=== PATIENT | female | born 1995 | race Caucasian/White ===

== ENCOUNTER 2023-07-28 12:02 | Outpatient (REF) | payer BC, SELFPAY ==
[2023-07-28 12:16] LABS: MANUAL DIFF FLAG NO
[2023-07-28 12:34] LABS: Basophils Percent Auto 0.6 % (0-2); Eosinophils Absolute Auto 0.2 X10*3/uL (0.0-0.4); Eosinophils Percent Auto 2.2 % (0-4); Hematocrit 40.2 % (37.0-47.0); Hemoglobin 13.7 g/dl (12.0-16.0); Imm Gran Abs Auto 0.02 X10*3/uL (0.00-0.03); Imm Gran Pct Auto 0.3 % (0.0-0.4); Lymphocytes Absolute Auto 2.7 X10*3/uL (1.2-4.9); Mean Corpuscular HGB Conc 34.1 g/dl (31.0-35.0); Mean Corpuscular Hemoglobin 31.8 pg (27.0-33.0); Mean Corpuscular Volume 93.3 fL (80.0-98.0); Mean Platelet Volume 10.4 fL (9.4-12.3); Monocytes Absolute Auto 0.5 X10*3/uL (0.1-1.2); Monocytes Percent Auto 7.3 % (2-11); Neutrophils Absolute Auto 3.7 x10*3/uL (2.0-8.3); Neutrophils Percent Auto 51.6 % (45-73); Platelet Count 334 X10*3/uL (160-400); Red Blood Count 4.31 X10*6/uL (4.20-5.50); Red Cell Distribution Width 12.2 % (11.0-16.0); White Blood Count 7.1 X10*3/uL (4.8-10.8)
[2023-07-28 13:12] LABS: Erythrocyte Sedimentation Rate 6 MM/HR (0-20)
[2023-07-28 13:44] LABS: Cholesterol 238 mg/dL (<200); HDL Cholesterol 37 mg/dL (>40); LDL Cholesterol Calculated 182 mg/dL (<100); Triglycerides 96 mg/dL (<150)
[2023-07-28 14:00] LABS: Ferritin 26 ng/mL (10-122)
== END 2023-07-28 12:03 | disposition home or self-care (01) ==
LOC: HO.LAB 12:02
PROVIDERS: PCP Internal Medicine Medical Oncology; Visit Provider Internal Medicine Medical Oncology
DX: D64.9 Anemia, unspecified (principal); E66.3 Overweight
CPT/HCPCS: 36415; 80061; 82728; 85025; 85652

== ENCOUNTER 2023-12-18 13:22 | Outpatient (AMB) | payer MEDICAID, SELFPAY ==
--- NOTE | 2023-12-18 13:24 | MHC.OFFVIS ---
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 but she switch primary care providers to Dr. Lorenzo and now she is coming here to initiate driver wheelchair care. She was on control since she was very young combination of the pills and Depo-Provera for 9 years. She has been having lots of health problems mainly to do with migraines with auras and trying figure out everything that was going on so she went off control to try and have her body get back to normal and she has been checking out with various doctors what is her planned strategy plan at this point she is trying to figure out all her triggers for her migraines with auras and she is taking magnesium every other day because every day was too much and she has a medication that she uses if she needs to with the migraines and she and her fiance are using condoms they have been together a long time and she did have a ones with him that she terminated because she was not good place when she was younger with mental health issues she is in better place now and they have had a conversation and there they do slip up and she gets they would continue the . They are planning to get in about a year. Right now her periods are heavy and very painful crampy this last 1 was about a week late was somewhat unusual and she did actually suspect she might of been but test with negative she does them lot. She can tell when she ovulates. She also has experienced a pressure and she points to her bladder area as being area and it is always in the morning she is lying in bed before she has gotten up. [facility] Family History (Updated 12/18/23 @ 13:42 by Chelsea Martinez) Paternal Grandfather Schizophrenia Mother Bipolar 1 disorder Female Reproductive History Menstrual Age of Menarche: 11 Duration of menses: 6-7 days Date of last menstrual period: 12/12/23 control method: none Total pregnancies: 1 Full term: 0 Premature: 0 Number of Living Children: 0 Ab induced: 1 Ab spontaneous: 0 Ectopics: 0 Multiple births: 0 Date of last pap smear: 02/07/23 History of abnormal pap smear: No History of STI: Yes (Chlamydia 2012) Physical Exam Vital Signs: Last Vital Signs BP 106/72 12/18/23 13:35 BMI result Body Mass Index 25.9 Const General: healthy appearing, comfortable, no acute distress, well developed and alert Nutritional Appearance: average body habitus Orientation/consciousness: patient oriented x3 Limitations: no limitations HEENT Head: Yes normocephalic Neck Neck: Yes normal visual inspection Chest Chest palpation & inspection: normal inspection of the chest Breast/axilla inspection: normal inspection of the breasts and normal inspection of the axillae Breast/axilla palpation: normal palpation of the breasts and normal palpation of the axillae Resp Effort & Inspection: normal respiratory effort GI Inspection: Yes normal to inspection, No Abdominal wall edema and No distended Palpation (GI): Soft to palpation and nontender Other: Normal external exam vagina pink and moist cervix nulliparous towards end of menses clear discharge with scant brown end of menses slightly friable with Pap uterus small midposition mobile nontender adnexa nontender nonenlarged good tone Kegel. General: Yes bladder normal to palpation External Female Exam: normal external appearance and normal appearance of the urethra Speculum Exam - Vagina: normal appearance of the vagina, normal palpation and normal vaginal discharge Speculum Exam - Cervix: normal appearance of the cervix, normal palpation and nontender Bimanual exam- vagina & uterus: normal bimanual exam, normal palpation, uterine size normal, bladder normal to palpation, consistency normal, normal palpation, uterine mobility normal, uterine shape normal, No Cervical tenderness present, non-tender and no cervical motion tenderness Bimanual Exam- Adnexa, other: normal adnexae, no masses, normal and No adnexal tenderness Neuro General: patient oriented x3 Assessment & Plan Assessment & Plan (1) Migraine: Code(s): G43.909 - Migraine, unspecified, not intractable, without status migrainosus (2) Well woman exam with routine gynecological exam: Code(s): Z01.419 - Encounter for gynecological examination (general) (routine) without abnormal findings Category: Medical (3) Cervical cancer screening: Code(s): Z12.4 - Encounter for screening for malignant neoplasm of cervix Category: Medical (4) control counseling: Code(s): Z30.09 - Encounter for other general counseling and advice on contraception Category: Medical Plan -----Discussed in this visit the following: healthy balanced diet, regular and consistent exercise, getting recommended health screens, doing the best she can for her particular health concerns, kegel exercises, pap smear screening and followup recommendations, mammography screening and SBE, normal changes in cycles in her life stage--- .-I reviewed with the patient, all of the currently common used methods of control that are available. We reviewed how they work in the body, how they are taken, common side effects, uncommon side effects, precautions, and contraindications. -Discussed also factors that influence their effectiveness and use, and womens satisfaction with the method. -Discussed how each are used, and drawbacks of each method as well. -Methods covered included: condoms, control pills, control patches, control rings, Depo-Provera, Nexplanon, Mirena and Kyleena IUDs, and ParaGard IUDs. All of the above methods were covered in great detail including their side effect profiles and common experiences that women have and ways to mitigate against the negative experiences including attention to diet and exercise patient's with bleeding challenges that may occur her and efforts to time the initiation of the method to this start of the menstrual period. ---I discussed with pt some of the optimal strategies for planning a , including achieving the best health she can before , including heathy balanced diet, exercise, wt loss to ideal BMI if appropriate, avoiding toxic substances and medications, not smoking, and taking a multivitamin w folic acid daily. Any specific health concerns should be managed before seeking/ putting oneself at risk of pregancy. In addition I reviewed normal cycles, fertility awareness and signs of ovulation, and timing to avoid, and achieve when she feel ready. I also discussed emotional and relationship and support readiness before embarking on . Also reviewed options for where to find team providers care for her during and and in the [facility] this would include [facility] and [address] [place] [address] in [place]. Orders: Orders Pap Smear Today Z01.419 - Encounter for gynecological examination (general) (routine) without abnormal findings CT NG by PCR Today Z01.419 - Encounter for gynecological examination (general) (routine) without abnormal findings Bacterial Vaginosis Panel Today Z01.419 - Encounter for gynecological examination (general) (routine) without abnormal findings Coding Level of Care Code New Pt Prev Care 18-39yr([id number] Diagnoses Migraine G43.909 Well woman exam with routine gynecological exam Z01.419 Cervical cancer screening Z12.4 control counseling Z30.09
[2023-12-18 13:35] VITALS: BP 106/72; BMI 25.9
== END 2023-12-18 15:52 | disposition home or self-care (01) ==
PROVIDERS: PCP Internal Medicine Medical Oncology; Visit Provider Advanced Practice Midwife
DX: G43.909 Migraine, unspecified, not intractable, without status migrainosus (principal); Z01.419 Encounter for gynecological examination (general) (routine) without abnormal findings; Z12.4 Encounter for screening for malignant neoplasm of cervix; Z30.09 Encounter for other general counseling and advice on contraception
CPT/HCPCS: 99385

== ENCOUNTER → 2023-12-18 13:22 | Outpatient (BNVA) | payer MEDICAID, SELFPAY | PROVIDERS: PCP Internal Medicine Medical Oncology; Visit Provider Advanced Practice Midwife | DX: Z01.419 Encounter for gynecological examination (general) (routine) without abnormal findings (principal); G43.109 Migraine with aura, not intractable, without status migrainosus | CPT/HCPCS: 99385 ==

== ENCOUNTER 2023-12-18 17:22 | Outpatient (REF) | payer MEDICAID, SELFPAY ==
[2023-12-19 03:23] LABS: CT PCR NOT DETECTED (Not Detect.); NG PCR NOT DETECTED (Not Detect.)
[2023-12-19 11:11] LABS: HPV 16,18/45 See PAP report
[2023-12-19 11:48] LABS: Bacterial Vaginosis PCR NEGATIVE (Negative); Candida Group PCR NOT DETECTED (Not Detect); Candida glab krusei PCR NOT DETECTED (Not Detect); Trichomonas vaginalis PCR NOT DETECTED (Not Detect)
== END 2023-12-18 17:23 | disposition home or self-care (01) ==
LOC: HO.LNP 17:22
PROVIDERS: Visit Provider Advanced Practice Midwife
DX: Z01.419 Encounter for gynecological examination (general) (routine) without abnormal findings (principal)
CPT/HCPCS: 0352U; 87491; 87591; 87624; 88175

== ENCOUNTER 2024-02-09 14:11 | Outpatient (REF) | payer MEDICAID, SELFPAY ==
[2024-02-09 14:29] LABS: MANUAL DIFF FLAG NO
[2024-02-09 14:35] LABS: Basophils Percent Auto 0.6 % (0-2); Eosinophils Absolute Auto 0.2 X10*3/uL (0.0-0.4); Eosinophils Percent Auto 2.6 % (0-4); Hemoglobin 13.8 g/dl (12.0-16.0); Imm Gran Abs Auto 0.02 X10*3/uL (0.00-0.03); Imm Gran Pct Auto 0.3 % (0.0-0.4); Lymphocytes Absolute Auto 2.5 X10*3/uL (1.2-4.9); Lymphocytes Percent Auto 36.9 % (20-40); Mean Corpuscular HGB Conc 33.7 g/dl (31.0-35.0); Mean Corpuscular Volume 95.1 fL (80.0-98.0); Mean Platelet Volume 10.7 fL (9.4-12.3); Monocytes Absolute Auto 0.4 X10*3/uL (0.1-1.2); Monocytes Percent Auto 5.4 % (2-11); Neutrophils Absolute Auto 3.7 x10*3/uL (2.0-8.3); Neutrophils Percent Auto 54.2 % (45-73); Platelet Count 284 X10*3/uL (160-400); Red Blood Count 4.31 X10*6/uL (4.20-5.50); White Blood Count 6.9 X10*3/uL (4.8-10.8)
== END 2024-02-09 14:12 | disposition home or self-care (01) ==
LOC: HO.LAB 14:11
PROVIDERS: PCP Internal Medicine Medical Oncology; Visit Provider Internal Medicine Medical Oncology
DX: I49.3 Ventricular premature depolarization (principal); G43.809 Other migraine, not intractable, without status migrainosus; J45.20 Mild intermittent asthma, uncomplicated; R42 Dizziness and giddiness
CPT/HCPCS: 36415; 85025

== ENCOUNTER 2024-12-17 09:19 | Outpatient (AMB) | payer OTHER, SELFPAY ==
--- OUTSIDE RECORDS SUMMARY | 2024-08-28 11:15 | XMS_ITS ---
Author Organization Trell Lorenzo III, MD Address [address] [place] [address] Care Team Providers Care Employee Health Nurse Name Role Phone Dr. Trell Lorenzo III Primary Care Provider [phone] Allergies Allergen (clinical drug ingredient) Drug/Non Drug Allergy documented on EMR Reaction Allergy Type Onset Date Status Adhesive Unknown Allergy Active REASON FOR VISIT Possible ringworm Medications Medication SIG (Take, Route, Frequency, Duration) Notes Start Date End Date Status Cetirizine HCl 10 MG TAKE 1 TABLET BY MO UT ONCE DAILY FOR ALLERGIES Oral Active Magnesium Oxide 250 MG 1 tablet as neede d Orally Once a day Active Propranolol HCl 10 MG TAKE 1 TABLET BY OUTH 3 TIMES DAILY NEEDED (PALPITATIONS). Oral Active Albuterol Sulfate HFA 108 (90 Base) MCG/ACT Inhalation Active OXcarbazepine 150 MG TAKE 1 TABLET BY MO UTH THREE TIMES A DAY Oral Active SUMAtriptan Active hydrOXYzine HCl 25 MG 1 tablet as needed Orally as needed for anxiety 11/06/2023 Active Social History Tobacco Use: Social History Observation Description Date Details (start date - stop date) Never Smoker NA - NA Sex Assigned At : Social History Observation Description Sex Assigned At Female Tobacco Use/Smoking Question Answer Notes Patient is a nonsmoker Problems Problem Type SNOMED Code ICD Code Onset Dates Problem Status W/U Status Risk Notes Problem [id number] Fungal dermatitis (B36.9) Active confirmed She will be treated with terbinafine for several weeks with a followup visit. Vital Signs Temperature 97.9 degrees Fahrenheit 08/29/19 25 Blood pressure systolic 122 mm Hg 08/29/19 25 Blood pressure diastolic 76 mm Hg 025 Heart Rate 71 /min 08/28/2024 Height 62 in 08/28/2024 Weight 144 lbs 08/28/2024 BMI 26.34 kg/m2 08/28/2024 Encounters Encounter Location Date Provider Diagnosis Trell Lorenzo III, MD [address] [place] [address] [place], [place] [address] 08/28/2024 Trell Lorenzo Fungal dermatitis B36.9 ; Tinnitus, bilateral H93.13 ; Mild intermittent asthma without complication J45.20 ; Vertigo R42 and Tension headache G44.209 Assessments Encounter Date Diagnosis (ICD Code) Assessment Notes Treatment Notes Treatment Clinical Notes 08/28/2024 Fungal dermatitis (ICD-10 - B36.9) She will be treated with terbinafine for several weeks with a followup visit. 08/28/2024 Tinnitus, bilateral (ICD-10 - H93.13) She has this episodically in neurology is aware.She has an appointment with ENT in September 2023 to address the issue of the previous myringotomies and her current tinnitus. Her hearing will be evaluated at that time. 08/28/2024 Mild intermittent asthma without complication (ICD-10 - J45.20) She has had episodes of asthma since childhood. I have refilled a prescription for an albuterol inhaler. She will come to the office if this becomes severe. 08/28/2024 Vertigo (ICD-10 - R42) She has an appointment with ENT in September 2023. The vertigo is not present now. 08/28/2024 Tension headache (ICD-10 - G44.209) She will continue on her use of acetaminophen and ibuprofen. Plan Of Treatment Medication Medication Name Sig Start Date Stop Date Notes Cetirizine HCl 10 MG TAKE 1 TABLET BY MO UTH ONCE DAILY FOR ALLERGIES Oral Magnesium Oxide 250 MG 1 tablet as neede d Orally Once a day Propranolol HCl 10 MG TAKE 1 TABLET BY M OUTH 3 TIMES DAILY NEEDED (PALPITATIONS). Oral Albuterol Sulfate HFA 108 (9 0 Base) MCG/ACT Inhalation OXcarbazepine 150 MG TAKE 1 TABLET BY MO UTH THREE TIMES A DAY Oral SUMAtriptan hydrOXYzine HCl 25 MG 1 tablet as needed Orally as needed for anxiety 11/06/2023 Next Appt Details Follow Up: 3 Weeks, Reason: Telehealth Provider Name:Trell Lorenzo , 04/14/2025 09:30:00 AM, [address] [facility] [address], [place], [address], Provider Name:Trell Lorenzo , 10/17/2025 09:30:00 AM, [address] [facility] [address], [place], [address], Progress Notes * Ericka WOLFE LDOB:1995 (28 yo F)Acc No.[id number]:08/28/2024 Patient: Ericka GUPTA Provider: Luís Lorenzo MD :1995 A ge:28 Y S ex:Female Date:08/28/2024 Address:[address] [place], [place] [id number] Subjective: * Chief Complaints: * P ossible ringworm * HPI: v : She is concerned about a rash he has developed. There are a few small red, punctate lesions on her forearms and abdomen and a round area in the range on the back of her right knee. In the area with typical continue. She has been given instructions on how to use terbinafine twice a day for several weeks with a followup visit. * ROS: G eneral/Constitutional: pain o nly normal aches and pains. C hills d enies.?Fatigue a dmits. F ever d enies. E NT: Decreased hearing d enies. R espiratory: Cough d enies. C ardiovascular: Chest pain with exertion d enies. D yspnea on exertion?denies. S hortness of breath d enies. G astrointestinal: Constipation d enies. D ecreased appetite d enies.?Diarrhea d enies. H eartburn d enies. N ausea d enies. R ectal bleeding?denies. V omiting d enies. H ematology: bruising d enies. p etechiae d enies. S wollen glands n one have been noted. G enitourinary: Frequent urination d enies. M usculoskeletal: Muscle aches d enies. P ainful joints d enies. S ciatica d enies. W eakness d enies. S kin: Itching d enies. R ria F ungal rash-appearing in several locations over the last few weeks. S kin lesion(s) d enies. N eurologic: Difficulty speaking d enies. D izziness d enies.?Headache d enies. L ow back pain d enies. P sychiatric: Depressed mood d enies. * Medical History: * Surgical History: B ilateral myringotomies Skin grafted eardrum age 14 [id number] Termination No history * Hospitalization/Major Diagno stic Procedure: N o history * Family History: F ather: alive 47 yrs, diagnosed with CVD, HTN. M other: 23 yrs, bipolar. S iblings: alive. 2 brother(s) , 2 sister(s) - healthy. . There is a history of Alzheimer's dementia in her grandparents. Her mother at the age of 23 in an automobile accident. She was an adopted. She is not aware of any family history of mental illness or addiction or substance use disorder. 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 She is engaged to be . She does not smoke cigarettes. She does not drink alcohol. She has no history of substance use disorder. She was born and raised in [place]. She has no islam objection to blood transfusion. * Medications: T akinghydrOXYzine HCl 25 MG Tablet 1 tablet as needed Orally as needed for anxiety SUMAtriptan Magnesium Oxide 250 MG Tablet 1 tablet as needed Orally Once a day Cetirizine HCl 10 MG Tablet TAKE 1 TABLET BY MOUTH ONCE DAILY FOR ALLERGIES Oral Albuterol Sulfate HFA 108 (90 Base) MCG/ACT Aerosol Solution Inhalation OXcarbazepine 150 MG Tablet TAKE 1 TABLET BY MOUTH THREE TIMES A DAY Oral Taking hydrOXYzine HCl 25 MG Tablet 1 tablet as needed Orally as needed for anxiety Taking SUMAtriptan Taking Magnesium Oxide 250 MG Tablet 1 tablet as needed Orally Once a day Taking Cetirizine HCl 10 MG Tablet TAKE 1 TABLET BY MOUTH ONCE DAILY FOR ALLERGIES Oral Taking Albuterol Sulfate HFA 108 (90 Base) MCG/ACT Aerosol Solution Inhalation Taking OXcarbazepine 150 MG Tablet TAKE 1 TABLET BY MOUTH THREE TIMES A DAY Oral DiscontinuedPropranolol HCl 10 MG Tablet TAKE 1 TABLET BY MOUTH 3 TIMES DAILY NEEDED (PALPITATIONS). Oral hydrOXYzine HCl 25 MG Tablet TAKE 1/2 TABLET BY MOUTH DAILY NEEDED FOR SLEEP OR ANXIETY. Oral Once a day Medication List reviewed and reconciled with the patientDiscontinued Propranolol HCl 10 MG Tablet TAKE 1 TABLET BY MOUTH 3 TIMES DAILY NEEDED (PALPITATIONS). Oral Discontinued hydrOXYzine HCl 25 MG Tablet TAKE 1/2 TABLET BY MOUTH DAILY NEEDED FOR SLEEP OR ANXIETY. Oral Once a day Medication List reviewed and reconciled with the patient * Allergies: A geronimovenliborio[Allergies Verified] Objective: * Vitals: H t: 62, Wt: 144, BMI:26.34, BP: 122/76, HR: 71, Temp: 97.9, Ht-cm: 157.48, Wt-k.32. * Examination: G eneral Examination: GENERAL APPEARANCE: p leasant, well nourished, well developed, in no acute distress, calm and relaxed: overweight: woman. HEAD: a traumatic, normocephalic. EYES: e matthew, perrla, anicteric, conjugate. EARS: n ormal. NOSE: s eptum intact. ORAL CAVITY: n ormal, unremarkable. NECK/THYROID: n o jugular venous distention, no carotid bruit, thyroid normal. LYMPH NODES: n o enlarged lymph nodes,spleen normal. SKIN: P rofound red area where the ring suspicious for tinea corporis back of knee. HEART: n o clicks, gallops, murmurs, or rubs, regular rhythm, S1, S2 normal, no s3, or vascular bruits. LUNGS: c lear to auscultation . BREASTS: N ot examined. ABDOMEN: b owel sounds normal, no ascites, no organomegaly, no mass: overweight. RECTAL EXAM: n ot examined. MUSCULOSKELETAL: e xtremities unremarkable, no clubbing, cyanosis or edema. PERIPHERAL PULSES: n ormal. NEUROLOGIC: a lert and oriented, cranial nerves 2-12 grossly intact, deep tendon reflexes 2+ symmetrical, motor strength normal upper and lower extremities, sensory exam intact. PSYCH: a lert, oriented. Assessment: * Assessment: 1. F ungal dermatitis - B36.9 (Primary) N otes :She will be treated with terbinafine for several weeks with a followup visit. 2 . T innitus, bilateral - H93.13 N otes :She has this episodically in neurology is aware.She has an appointment with ENT in September 2023 to address the issue of the previous myringotomies and her current tinnitus. Her hearing will be evaluated at that time. 3 . M ild intermittent asthma without complication - J45.20 N otes :She has had episodes of asthma since childhood. I have refilled a prescription for an albuterol inhaler. She will come to the office if this becomes severe. 4 . V ertigo - R42 N otes :She has an appointment with ENT in September 2023. The vertigo is not present now. 5 . T ension headache - G44.209 N otes :She will continue on her use of acetaminophen and ibuprofen. Plan: * Treatment: 2. O thers Continue hydrOXYzine HCl Tablet, 25 MG, 1 tablet as needed, Orally, as needed for anxiety; C ontinue SUMAtriptan; C ontinue Magnesium Oxide Tablet, 250 MG, 1 tablet as needed, Orally, Once a day; C ontinue Cetirizine HCl Tablet, 10 MG, TAKE 1 TABLET BY MOUTH ONCE DAILY FOR ALLERGIES, Oral; C ontinue Albuterol Sulfate HFA Aerosol Solution, 108 (90 Base) MCG/ACT, Inhalation; C ontinue Propranolol HCl Tablet, 10 MG, TAKE 1 TABLET BY MOUTH 3 TIMES DAILY NEEDED (PALPITATIONS)., Oral. * Procedure Codes: * Preventive Medicine: Counseling: C are goal follow-up plan: Counseling for abnormal BMI given Y es Above Normal BMI Follow-up D ietary management education, guidance, and counseling, Dietary needs education, Exercise promotion: strength training, Exercise promotion: stretching, Feeding regime, Giving encouragement to exercise, Lifestyle education regarding diet, Nutrition / feeding management, Nutrition therapy, Prescribed activity/exercise education, Prescribed diet education, Prescribed dietary intake, Special diet education, Weight monitoring , Intervention, Order not done: Medical or Other reason not done * Follow Up: 3 Weeks (Reason: Telehealth) * Images: * Sign off status: Completed true * Provider: Luís Lorenzo MD Date: 0 08/28/2024 Generated for Sharon wilkes/Ramakrishna/Alber on: 02/17/2024 10:09 AM EST History and Physical Notes * Examination Category Sub-Category Detail Notes General Examination GENERAL APPEARANCE: pleasant , well nourished, well developed, in no acute distress, calm and relaxed: overweight: woman HEAD: atraumatic, normocep halic EYES: eomi, perrla, anicte gautam, conjugate EARS: normal NOSE: septum intact NECK/THYROID: no jugular venous di stention, no carotid bruit, thyroid normal HEART: no clicks, gallops, murmurs, or rubs, regular rhythm, S1, S2 normal, no s3, or vascular bruits LUNGS: clear to auscultatio n ABDOMEN: bowel sounds normal, no ascites, no organomegaly, no mass: overweight NEUROLOGIC: alert and oriented, cranial nerves 2-12 grossly intact, deep tendon reflexes 2+ symmetrical, motor strength normal upper and lower extremities, sensory exam intact SKIN: Profound red area wh ere the ring suspicious for tinea corporis back of knee PERIPHERAL PULSES: normal BREASTS: Not examined MUSCULOSKELETAL: extremities unremark able, no clubbing, cyanosis or edema LYMPH NODES: no enlarged lymph no german,spleen normal RECTAL EXAM: not examined PSYCH: alert, oriented ORAL CAVITY: normal, unremarkable
--- OUTSIDE RECORDS SUMMARY | 2024-09-10 04:13 | XMS_ITS ---
Author Organization Trell Lorenzo III, MD Address [address] [place] [address] [place] [address] Care Team Providers Care Fluid Pump Operator Name Role Phone Dr. Trell Lorenzo III Primary Care Provider REASON FOR VISIT update on her rash getting worse Social History Sex Assigned At : Social History Observation Description Sex Assigned At Female Encounters Encounter Location Date Provider Diagnosis Trell Lorenzo III, MD [address] [place] [address] [place] [address] 09/10/2024 Trell Lorenzo Plan Of Treatment Next Appt Details Provider Name:Trell Lorenzo , 04/14/2025 09:30:00 AM, [address] [place] [address] [place], [address], Provider Name:Trell Lorenzo , 10/17/2025 09:30:00 AM, [address] [place] [address] [place], [address], Progress Notes * Ericka WOLFE LDOB:1995 (28 yo F)Acc No.[id number]:09/10/2024 Patient: Bob MEDINABARI Ericka Méndez :1995 A ge:28 Y S ex:Female Address:[address], [address], [place], [address] * true * Date: Generated for Printi ng/Faxing/eTransmitting on: 02/17/2024 10:08 AM EST
--- OUTSIDE RECORDS SUMMARY | 2024-09-10 06:20 | XMS_ITS ---
Author Organization Trell Lorenzo III, MD Address [address] [place] [address] [place] [address] Care Team Providers Care Pulp Grinder Name Role Phone Dr. Trell Lorenzo III Primary Care Provider [phone] Medications Medication SIG (Take, Route, Fr equency, Duration) Notes Start Date End Date Status Ketoconazole 2 % 1 application Green Belt ally twice a day for 14 days 09/10/2024 11/05/2024 Active Social History Sex Assigned At : Social History Observation Description Sex Assigned At Female Encounters Encounter Location Date Provider Diagnosis Trell Lorenzo III, MD [address] [place] [address] [place] [address] 09/10/2024 Trell Lorenzo Plan Of Treatment Medication Medication Name Sig Start Date Stop Date Notes Ketoconazole 2 % 1 application Green Belt ally twice a day for 14 days 09/10/2024 11/05/2024 Next Appt Details Provider Name:Trell Lorenzo , 04/14/2025 09:30:00 AM, [address] [place] [address] [place], [address], Provider Name:Trell Lorenzo , 10/17/2025 09:30:00 AM, [address] [place] [address] [place], [address], Progress Notes * Ericka WOLFE LDOB:1995 (28 yo F)Acc No.[id number]:09/10/2024 Patient: Bob Ericka SIN :1995 A ge:28 Y S ex:Female Address:[address] [place] [address], [place] [address] * Refills Start Ketoconazole Cream, 2 %, Externally, 60 Gram, 1 application, twice a day, 14 days, Refills=3 * true * Date: Generated for Sharon wilkes/Ramakrishna/Mooseitting on: 02/17/2024 10:09 AM EST
--- OUTSIDE RECORDS SUMMARY | 2024-09-13 04:00 | XMS_ITS ---
Author Organization Trell Lorenzo III, MD Address [address] [address] Care Team Providers Care Water Team Leader Name Role Phone Dr. Trell Lorenzo III Primary Care Provider [phone] Allergies Allergen (clinical drug ingredient) Drug/Non Drug Allergy documented on EMR Reaction Allergy Type Onset Date Status Adhesive Unknown Allergy Active REASON FOR VISIT Rash, Asthma, Migraines Medications Medication SIG (Take, Route, Frequency, Duration) Notes Start Date End Date Status OXcarbazepine 150 MG TAKE 1 TABLET BY MO UTH THREE TIMES A DAY Oral Active Propranolol HCl 10 MG TAKE 1 TABLET BY M OUTH 3 TIMES DAILY NEEDED (PALPITATIONS). Oral Active Ketoconazole 2 % 1 application Auto Service Representative ally twice a day 09/10/2024 Active Ketoconazole 2 % 1 application Auto Service Representative ally twice a day for 14 days 09/13/2024 12/06/2024 Active Albuterol Sulfate HFA 108 (90 Base) MCG/ACT Inhalation Active Magnesium Oxide 250 MG 1 tablet as neede d Orally Once a day Active SUMAtriptan Active Cetirizine HCl 10 MG TAKE 1 TABLET BY MO UTH ONCE DAILY FOR ALLERGIES Oral Active hydrOXYzine HCl 25 MG 1 tablet [...] Problem Status W/U Status Risk Notes Problem [id number] Pityriasis versicolor (B36.0) Active confirmed The rash has resolved Vital Signs Temperature 98.2 degrees Fahrenheit 09/14/19 25 Blood pressure systolic 130 mm Hg 09/14/19 25 Blood pressure diastolic 73 mm Hg 025 Heart Rate 64 /min 09/13/2024 Height 62 in 09/13/2024 Weight 142 lbs 09/13/2024 BMI 25.97 kg/m2 09/13/2024 Encounters Encounter Location Date Provider Diagnosis Trell Lorenzo III, MD [address] [place] [address] [place] [address] 09/13/2024 Trell Lorenzo Pityriasis versicolo r B36.0 ; Tinnitus, bilateral H93.13 ; Mild intermittent asthma without complication J45.20 ; Tension headache G44.209 and Vertigo R42 Assessments Encounter Date Diagnosis (ICD Code) Assessment Notes Treatment Notes Treatment Clinical Notes 09/13/2024 Pityriasis versicolor (ICD-10 - B36.0) She is going to try triamcinolone. A follow-up visit was arranged. She was referred to dermatology.She has tried and failed to respond to terbinafine and ketoconazole. 09/13/2024 Tinnitus, bilateral (ICD-10 - H93.13) She has this episodically in neurology is aware.She has an appointment with ENT in September 2023 to address the issue of the previous myringotomies and her current tinnitus. Her hearing will be evaluated at that time. 09/13/2024 Mild intermittent asthma without complication (ICD-10 - J45.20) She has had episodes of asthma since childhood. I have refilled a prescription for an albuterol inhaler. She will come to the office if this becomes severe. 09/13/2024 Tension headache (ICD-10 - G44.209) She will continue on her use of acetaminophen and ibuprofen. 09/13/2024 Vertigo (ICD-10 - R42) She has an appointment with ENT in September 2023. The vertigo is not present now. Plan Of Treatment Medication Medication Name Sig Start Date Stop Date Notes OXcarbazepine 150 MG TAKE 1 TABLET BY MO UTH THREE TIMES A DAY Oral Propranolol HCl 10 MG TAKE 1 TABLET BY M OUTH 3 TIMES DAILY NEEDED (PALPITATIONS). Oral Ketoconazole 2 % 1 application Auto Service Representative ally twice a day 09/10/2024 Ketoconazole 2 % 1 application Auto Service Representative ally twice a day for 14 days 09/13/2024 12/06/2024 Albuterol Sulfate HFA 108 (9 0 Base) MCG/ACT Inhalation Magnesium Oxide 250 MG 1 tablet as neede d Orally Once a day SUMAtriptan Cetirizine HCl 10 MG TAKE 1 TABLET BY [facility] ONCE DAILY FOR ALLERGIES Oral hydrOXYzine HCl 25 MG 1 tablet as needed Orally as needed for anxiety 11/06/2023 Next Appt Details Follow Up: Next Monday Mo rning, Reason: OV no tests recheck rash Provider Name:Trell Lorenzo , 04/14/2025 09:30:00 AM, [address] [place] [address] [address], [place], [address], Provider Name:Trell Lorenzo , 10/17/2025 09:30:00 AM, [address] [place] [address] [address] [place], [place], [address], Progress Notes * Ericka WOLFE LDOB:1995 (28 yo F)Acc No.[id number]:09/13/2024 Progress Notes Patient: Ericka GUPTA Provider: Luís Lorenzo MD :1995 A ge:28 Y S ex:Female Date:09/13/2024 Address:[address] [place], [place] [id number] Subjective: * Chief Complaints: * R ashAsthmaMigraines * HPI: C OVID-19 Screening: She returns for follow-up of a rash first noted on her last vissit. She has been using ketoconazole as it appeared to be fungal. It has spread more to her torso. To date appears to be consistent with pityriasis. I have given her some triamcinolone in a follow-up visit. We have referred her to dermatology as well. She seems medically stable today. The pruritus is mild and intermittent. Questions H ave you had any new onset fever, chills, cough, congestion, sore throat, shortness of breath, muscle aches? N o * ROS: G eneral/Constitutional: pain o nly [...] S kin: Itching d enies. R ria H as become more extensive, mild intermittent pruritus. S kin lesion(s) d enies. N eurologic: Difficulty speaking d enies. D izziness d enies.?Headache d enies. L ow back pain d enies. P sychiatric: Depressed mood d enies. 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 She is engaged to be . She does not smoke cigarettes. She does not drink alcohol. She has no history of substance use disorder. She was born and raised in [place]. She has no mu-ism objection to blood transfusion. * Medications: T akinghydrOXYzine HCl 25 MG Tablet 1 tablet as needed Orally as needed for anxiety SUMAtriptan Magnesium Oxide 250 MG Tablet 1 tablet as needed Orally Once a day Cetirizine HCl 10 MG Tablet TAKE 1 TABLET BY MOUTH ONCE DAILY FOR ALLERGIES Oral Albuterol Sulfate HFA 108 (90 Base) MCG/ACT Aerosol Solution Inhalation Propranolol HCl 10 MG Tablet TAKE 1 TABLET BY MOUTH 3 TIMES DAILY NEEDED (PALPITATIONS). Oral OXcarbazepine 150 MG Tablet TAKE 1 TABLET BY MOUTH THREE TIMES A DAY Oral Ketoconazole 2 % Cream 1 application Externally twice a day , stop date 11/05/2024Medication List reviewed and reconciled with the patientTaking hydrOXYzine HCl 25 MG Tablet 1 tablet as needed Orally as needed for anxiety Taking SUMAtriptan Taking Magnesium Oxide 250 MG Tablet 1 tablet as needed Orally Once a day Taking Cetirizine HCl 10 MG Tablet TAKE 1 TABLET BY MOUTH ONCE DAILY FOR ALLERGIES Oral Taking Albuterol Sulfate HFA 108 (90 Base) MCG/ACT Aerosol Solution Inhalation Taking Propranolol HCl 10 MG Tablet TAKE 1 TABLET BY MOUTH 3 TIMES DAILY NEEDED (PALPITATIONS). Oral Taking OXcarbazepine 150 MG Tablet TAKE 1 TABLET BY MOUTH THREE TIMES A DAY Oral Taking Ketoconazole 2 % Cream 1 application Externally twice a day , stop date 11/05/2024Medication List reviewed and reconciled with the patient * Allergies: A dhesiveno[Allergies Verified] Objective: * Vitals: H t: 62, Wt: 142, BMI:25.97, BP: 130/73, HR: 64, Temp: 98.2, Ht-cm: 157.48, Wt-k.41. * Examination: G eneral Examination: GENERAL APPEARANCE: [...] n o enlarged lymph nodes,spleen normal. SKIN: N umerous round red areas over her arms and torso with mild scaling. HEART: n o clicks, gallops, murmurs, or [...] a lert, oriented. Assessment: * Assessment: 1. P ityriasis versicolor - B36.0 (Primary) N otes :She is going to try triamcinolone. A follow-up visit was arranged. She was referred to dermatology.She has tried and failed to respond to terbinafine and ketoconazole. 2 . T innitus, bilateral - H93.13 [...] office if this becomes severe. 4 . T ension headache - G44.209 N otes :She will continue on her use of acetaminophen and ibuprofen. 5 . V ertigo - R42 N otes :She has an appointment with ENT in September 2023. The vertigo is not present now. Plan: * Treatment: 2. O thers Continue [...] BY MOUTH 3 TIMES DAILY NEEDED (PALPITATIONS)., Oral; C ontinue OXcarbazepine Tablet, 150 MG, TAKE 1 TABLET BY MOUTH THREE TIMES A DAY, Oral; Start Ketoconazole Cream, 2 %, 1 application, Externally, twice a day, 14 days, 120 Gram, Refills 5. * Procedure Codes: * Preventive Medicine: Counseling: C are goal follow-up plan: Counseling for abnormal BMI given Y es Above Normal BMI Follow-up D ietary management education, guidance, and counseling * Follow Up: N ext Monday (Reason: OV no tests recheck rash) * Images: * Sign off status: Completed true * Provider: Luís Lorenzo MD Date: 0 09/13/2024 Generated for Sharon wilkes/Ramakrishna/Jamilaransmitting on: 1 02/17/2024 10:09 AM EST History and Physical Notes * HPI (History of Present Illness) Category Sub-Category Detail Notes COVID-19 Screening Questions Have you had any new onset fever, chills, cough, congestion, sore throat, shortness of breath, muscle aches?: No Examination Category Sub-Category Detail Notes General Examination [...] and lower extremities, sensory exam intact SKIN: Numerous round red a reas over her arms and torso with mild scaling PERIPHERAL PULSES: normal BREASTS: Not examined MUSCULOSKELETAL: extremities unremark able, no clubbing, cyanosis or edema LYMPH NODES: no enlarged lymph no german,spleen normal RECTAL EXAM: not examined PSYCH: alert, oriented ORAL CAVITY: normal, unremarkable
--- OUTSIDE RECORDS SUMMARY | 2024-09-18 04:30 | XMS_ITS ---
Author Organization Trell Lorenzo III, MD Address [address] [place] [address] Care Team Providers Care Bioinformatics Computer Scientist Name Role Phone Dr. Trell Lorenzo III Primary Care Provider Allergies Allergen (clinical drug ingredient) Drug/Non Drug Allergy documented on EMR Reaction Allergy Type Onset Date Status Adhesive Unknown Allergy Active REASON FOR VISIT Migraines, Rash Medications Medication SIG (Take, Route, Frequency, Duration) Notes Start Date End Date Status Cetirizine HCl 10 MG TAKE 1 TABLET BY MO [facility] ONCE DAILY FOR ALLERGIES Oral Active Magnesium Oxide 250 MG 1 tablet as neede d Orally Once a day Active Propranolol HCl 10 MG TAKE 1 TABLET BY [facility] 3 TIMES DAILY NEEDED (PALPITATIONS). Oral Active Albuterol Sulfate HFA 108 (90 Base) MCG/ACT Inhalation Active SUMAtriptan Active hydrOXYzine HCl 25 MG 1 tablet as needed Orally as needed for anxiety 11/06/2023 Active OXcarbazepine 150 MG TAKE 1 TABLET BY [facility] THREE TIMES A DAY Oral Active Ketoconazole 2 % 1 application Public Health Dietitian ally twice a day 09/13/2024 Active Ketoconazole 2 % 1 application Public Health Dietitian ally twice a day 09/10/2024 Active Social History Tobacco Use: Social History Observation Description Date Details (start date - stop date) Never Smoker NA - NA Sex Assigned At : Social History Observation Description Sex Assigned At Female Tobacco Use/Smoking Question Answer Notes Patient is a nonsmoker Vital Signs Blood pressure systolic 132 mm Hg 09/19/19 25 Blood pressure diastolic 70 mm Hg 025 Heart Rate 70 /min 09/18/2024 Height 62 in 09/18/2024 Weight 141 lbs 09/18/2024 BMI 25.79 kg/m2 09/18/2024 Encounters Encounter Location Date Provider Diagnosis Trell Lorenzo III, MD [address] [place] [address] [address] [place], [place] [address] 09/18/2024 Trell Lorenzo Pityriasis versicolo r B36.0 ; Mild intermittent asthma without complication J45.20 ; Vertigo R42 ; Overweight E66.3 and Vestibular migraine G43.809 Assessments Encounter Date Diagnosis (ICD Code) Assessment Notes Treatment Notes Treatment Clinical Notes 09/18/2024 Pityriasis versicolor (ICD-10 - B36.0) She is going to try triamcinolone. A follow-up visit was arranged. She was referred to dermatology.She has tried and failed to respond to terbinafine and ketoconazole. 09/18/2024 Mild intermittent asthma without complication (ICD-10 - J45.20) She has had episodes of asthma since childhood. I have refilled a prescription for an albuterol inhaler. She will come to the office if this becomes severe. 09/18/2024 Vertigo (ICD-10 - R42) She has an appointment with ENT in September 2023. The vertigo is not present now. 09/18/2024 Overweight (ICD-10 - E66.3) She is slightly overweight with a body mass index of 26. We discussed her diet and nutrition. We made a plan to lose weight at a rate of one half of a pound per week until the body mass index is in the normal range. 09/18/2024 Vestibular migraine (ICD-10 - G43.809) Dr. Doss has given her sumatriptan. Plan Of Treatment Medication Medication Name Sig Start Date Stop Date Notes Cetirizine HCl 10 MG TAKE 1 TABLET BY [facility] ONCE DAILY FOR ALLERGIES Oral Magnesium Oxide 250 MG 1 tablet as neede d Orally Once a day Propranolol HCl 10 MG TAKE [address] TABLET [address] [facility] 3 TIMES DAILY NEEDED (PALPITATIONS). Oral Albuterol Sulfate HFA 108 (9 0 Base) MCG/ACT Inhalation SUMAtriptan hydrOXYzine HCl 25 MG 1 tablet as needed Orally as needed for anxiety 11/06/2023 OXcarbazepine 150 MG TAKE 1 TABLET BY [facility] THREE TIMES A DAY Oral Ketoconazole 2 % 1 application Public Health Dietitian ally twice a day 09/13/2024 Ketoconazole 2 % 1 application Public Health Dietitian ally twice a day 09/10/2024 Next Appt Details Follow Up: 1 Week, Reason: O V Provider Name:Trell Lorenzo , 04/14/2025 09:30:00 AM, [address] [place] [address] [address], [place], [address], Provider Name:Trell Lorenzo , 10/17/2025 09:30:00 AM, [address] [place] [address] [address], [place], [address], Progress Notes * Ericka WOLFE LDOB:1995 (28 yo F)Acc No.[id number]:09/18/2024 Progress Notes Patient: Ericka GUPTA Provider: Luís Lorenzo MD :1995 A ge:28 Y S ex:Female Date:09/18/2024 Address:[address] [place], [place] [id number] Subjective: * Chief Complaints: * M igrainesRash * HPI: C OVID-19 Screening: Her migraines are slightly better. She is using Tylenol alone. The rash is unchanged or slightly worse. It is present over her arms and chest. It does not involve her lower extremities or back. It consists of flat red areas of skin without scaling or pruritus. It is likely pityriasis. She is asymptomatic. She will continue the ketoconazole for another week. If that is ineffective will use triamcinolone.? We are waiting for her dermatology appointment. Questions H ave you had any new [...] S kin: Itching d enies. R ria U nchanged. S kin lesion(s) d enies. N eurologic: Difficulty speaking d enies. D izziness d enies.?Headache S lightly better. L ow back pain d enies. P sychiatric: Depressed mood d enies. 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 She is engaged to be . She does not smoke cigarettes. She does not drink alcohol. She has no history of substance use disorder. She was born and raised in [place]. She has no episcopalian objection to blood transfusion. * Medications: T [...] Externally twice a day , stop date 12/06/2024Ketoconazole 2 % Cream 1 application Externally twice a day Medication List reviewed and reconciled with the patientTaking [...] Externally twice a day , stop date 12/06/2024Taking Ketoconazole 2 % Cream 1 application Externally twice a day Medication List reviewed and reconciled with the patient * Allergies: A dhesiveno[Allergies Verified] Objective: * Vitals: H t: 62, Wt: 141, BMI:25.79, BP: 132/70, HR: 70, Ht-cm: 157.48, Wt-k.96. * Examination: G eneral Examination: GENERAL APPEARANCE: [...] n o enlarged lymph nodes,spleen normal. SKIN: n o suspicious lesions, anicteric, Flat red Macular rash unchanged. HEART: n o clicks, gallops, murmurs, or [...] respond to terbinafine and ketoconazole. 2 . M ild intermittent asthma without complication - J45.20 N otes :She has had episodes of asthma since childhood. I have refilled a prescription for an albuterol inhaler. She will come to the office if this becomes severe. 3 . V ertigo - R42 N otes :She has an appointment with ENT in September 2023. The vertigo is not present now. 4 . O verweight - E66.3 N otes :She is slightly overweight with a body mass index of 26. We discussed her diet and nutrition. We made a plan to lose weight at a rate of one half of a pound per week until the body mass index is in the normal range. 5 . V estibular migraine - G43.809 N otes :Dr. Doss has given her sumatriptan. Plan: * Treatment: 2. O thers Continue [...] BY MOUTH THREE TIMES A DAY, Oral; Continue Ketoconazole Cream, 2 %, 1 application, Externally, twice a day. * Procedure Codes: * Preventive Medicine: Counseling: C are goal follow-up plan: Counseling for abnormal BMI given Y es Above Normal BMI Follow-up D ietary management education, guidance, and counseling * Follow Up: 1 Week (Reason: OV) * Images: * Sign off status: Completed true * Provider: Luís Lorenzo MD Date: 0 09/18/2024 Generated for Sharon wilkes/Ramakrishna/Alber on: 02/17/2024 10:09 [...] and lower extremities, sensory exam intact SKIN: no suspicious lesion s, anicteric, Flat red Macular rash unchanged PERIPHERAL PULSES: normal BREASTS: Not examined MUSCULOSKELETAL: extremities unremark able, no clubbing, cyanosis or edema LYMPH NODES: no enlarged lymph no german,spleen normal RECTAL EXAM: not examined PSYCH: alert, oriented ORAL CAVITY: normal, unremarkable
--- OUTSIDE RECORDS SUMMARY | 2024-09-18 12:30 | XMS_ITS ---
Author Organization Trell Lorenzo III, MD Address [address] [place] [address] [place] [address] Care Team Providers Care Pattern Developer Name Role Phone Dr. Trell Lorenzo III Primary Care Provider [phone] REASON FOR VISIT Telehealth Medications Medication SIG (Take, Route, Frequency, Duration) Notes Start Date End Date Status Propranolol HCl 10 MG TAKE [address] [facility] 3 TIMES DAILY NEEDED (PALPITATIONS). Oral Active Ketoconazole 2 % 1 application Care Specialist ally twice a day 09/13/2024 Active Ketoconazole 2 % 1 application Care Specialist ally twice a day 09/10/2024 Active OXcarbazepine 150 MG TAKE 1 TABLET BY [facility] THREE TIMES A DAY Oral Active Magnesium Oxide 250 MG 1 tablet as neede d Orally Once a day Active SUMAtriptan Active Albuterol Sulfate HFA 108 (90 Base) MCG/ACT Inhalation Active Cetirizine HCl 10 MG TAKE 1 TABLET BY [facility] ONCE DAILY FOR ALLERGIES Oral Active hydrOXYzine HCl 25 MG 1 tablet as needed Orally as needed for anxiety 11/06/2023 Active Social History Sex Assigned At : Social History Observation Description Sex Assigned At Female Encounters Encounter Location Date Provider Diagnosis Trell Lorenzo III, MD [address] [place] [address] [place] [address] 09/18/2024 Trell Lorenzo Pityriasis versicolo r B36.0 [...] HCl 10 MG TAKE [address] [facility] 3 TIMES DAILY NEEDED (PALPITATIONS). Oral Ketoconazole 2 % 1 application Care Specialist ally twice a day 09/13/2024 Ketoconazole 2 % 1 application Care Specialist ally twice a day 09/10/2024 OXcarbazepine 150 MG TAKE 1 TABLET BY [facility] THREE TIMES A DAY Oral Magnesium Oxide 250 MG 1 tablet as neede d Orally Once a day SUMAtriptan Albuterol Sulfate HFA 108 (9 0 Base) MCG/ACT Inhalation Cetirizine HCl 10 MG TAKE 1 TABLET BY [facility] ONCE DAILY FOR ALLERGIES Oral hydrOXYzine HCl 25 MG 1 tablet as needed Orally as needed for anxiety 11/06/2023 Next Appt Details Provider Name:Trell Lorenzo , 04/14/2025 09:30:00 AM, [address] [place] [address] [address], [place], [address], Provider Name:Trell Lorenzo , 10/17/2025 09:30:00 AM, [address] [place] [address] [address], [place], [address], Progress Notes * Ericka WOLFE LDOB:1995 (29 yo F)Acc No.[id number]:09/18/2024 Patient: Bob KATHIAJEFFREYBARI Ericka L Provider: Luís Lorenzo MD :1995 A ge:28 Y S ex:Female Date:09/18/2024 Address:[address] [place], [place] [id number] Subjective: * Chief Complaints: * 1 . Telehealth. * HPI: * : Telehealth L ocation of provider rendering services: { ...} [address] [place] [address] [address] [facility] [address] L ocation of patient: a ddress listed [...] 0 09/18/2024 Generated for Sharon wilkes/Ramakrishna/Mooseitting on: 02/17/2024 10:08 AM EST History and Physical Notes * HPI (History of Present Illness) Category Sub-Category Detail Notes Telehealth Location of [facility] rendering services:: {...} [address] [place] [address] Location of patient:: address listed in demographics [...]
--- OUTSIDE RECORDS SUMMARY | 2024-09-27 10:45 | XMS_ITS ---
Author Organization Trell Lorenzo III, MD Address [address] [place] [address] Care Team Providers Care Software Engineering Specialist Name Role Phone Dr. Trell Lorenzo III Primary Care Provider Allergies Allergen (clinical drug ingredient) Drug/Non Drug Allergy documented on EMR Reaction Allergy Type Onset Date Status Adhesive Unknown Allergy Active REASON FOR VISIT follow up Medications Medication SIG (Take, Route, Frequency, Duration) Notes Start Date End Date Status Cetirizine HCl 10 MG TAKE 1 TABLET BY MO UT ONCE DAILY FOR ALLERGIES Oral Active SUMAtriptan Active Magnesium Oxide 250 MG 1 tablet as neede d Orally Once a day Active hydrOXYzine HCl 25 MG 1 tablet as needed Orally as needed for anxiety 11/06/2023 Active Ketoconazole 2 % 1 application Loader Operator ally twice a day 09/13/2024 Active OXcarbazepine 150 MG TAKE 1 TABLET BY MO UT THREE TIMES A DAY Oral Active Albuterol Sulfate HFA 108 (90 Base) MCG/ACT Inhalation Active Propranolol HCl 10 MG TAKE 1 TABLET BY M OUT 3 TIMES DAILY NEEDED (PALPITATIONS). Oral Active Social History Tobacco Use: Social History Observation Description Date Details (start date - stop date) Never Smoker NA - NA Sex Assigned At : Social History Observation Description Sex Assigned At Female Tobacco Use/Smoking Question Answer Notes Patient is a nonsmoker Encounters Encounter Location Date Provider Diagnosis Trell Lorenzo III, MD [address] [place] [address] [place] [address] 09/27/2024 Trell Lorenzo Pityriasis versicolo r B36.0 Assessments Encounter Date Diagnosis (ICD Code) Assessment Notes Treatment Notes Treatment Clinical Notes 09/27/2024 Pityriasis versicolor (ICD-10 - B36.0) She is going to try triamcinolone. A follow-up visit was arranged. She was referred to dermatology.She has tried and failed to respond to terbinafine and ketoconazole. Plan Of Treatment Medication Medication Name Sig Start Date Stop Date Notes Cetirizine HCl 10 MG TAKE 1 TABLET BY MO UT ONCE DAILY FOR ALLERGIES Oral SUMAtriptan Magnesium Oxide 250 MG 1 tablet as neede d Orally Once a day hydrOXYzine HCl 25 MG 1 tablet as needed Orally as needed for anxiety 11/06/2023 Ketoconazole 2 % 1 application Loader Operator ally twice a day 09/13/2024 OXcarbazepine 150 MG TAKE 1 TABLET BY MO UT THREE TIMES A DAY Oral Albuterol Sulfate HFA 108 (9 0 Base) MCG/ACT Inhalation Propranolol HCl 10 MG TAKE 1 TABLET BY M OUT 3 TIMES DAILY NEEDED (PALPITATIONS). Oral Next Appt Details Provider Name:Trell Lorenzo , 04/14/2025 09:30:00 AM, [address] [place] [address] [address], [place], [address], Provider Name:Trell Lorenzo , 10/17/2025 09:30:00 AM, [address] [place] [address] [address], [place], [address], Progress Notes * Ericka WOLFE LDOB:1995 (29 yo F)Acc No.[id number]:09/27/2024 Progress Notes Patient: Ericka GUPTA Provider: Luís Lorenzo MD :1995 A ge:28 Y S ex:Female Date:09/27/2024 Address:[address] [place], [place] [id number] Subjective: * Chief Complaints: * 1 . Follow up. * HPI: C OVID-19 Screening: Questions H ave you had any new [...] Depressed mood d enies. * Medical History: T innitus of both ears, Anxiety, Asthma, Vertigo, Tension headaches, Complex migraines, Childhood otitis requiring myringotomies, [id number], Asthma, Overweight. * Surgical History: B ilateral myringotomies , Skin grafted eardrum age 14 , [id number] Termination , No history . * Hospitalization/Major Diagno stic Procedure: N o history . 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 She is engaged to be . She does not smoke cigarettes. She does not drink alcohol. She has no history of substance use disorder. She was born and raised in [place]. She has no denominational objection to blood transfusion. * Medications: T aking hydrOXYzine HCl 25 MG Tablet 1 tablet [...] reconciled with the patient * Allergies: A dhesive. Objective: * Vitals: * Examination: G eneral Examination: GENERAL APPEARANCE: p leasant, well nourished, well developed, in no acute distress, calm and relaxed. HEAD: a traumatic, normocephalic. EYES: e matthew, perrla, anicteric, conjugate. EARS: n ormal. NOSE: s eptum intact. ORAL CAVITY: n ormal, unremarkable. NECK/THYROID: n o jugular venous distention, no carotid bruit, thyroid normal. LYMPH NODES: n o enlarged lymph nodes,spleen normal. SKIN: n o suspicious lesions, anicteric. HEART: n o clicks, gallops, murmurs, or rubs, regular rhythm, S1, S2 normal, no s3, or vascular bruits. LUNGS: c lear to auscultation . BREASTS: no masses palpable bilaterally. ABDOMEN: b owel sounds normal, no ascites, no organomegaly, no mass. RECTAL EXAM: n ot examined. MUSCULOSKELETAL: e [...] to terbinafine and ketoconazole. Plan: * Treatment: * Images: * The named appointment provid er may or may not be the originator of this progress note, and it is not deemed complete until electronically signed by the appointment provider. Sign off status: Pending * Provider: Luís Lorenzo MD Date: 0 09/27/2024 Generated for Sharon wilkes/Ramakrishna/Mooseitting on: 02/17/2024 10:09 AM EST History and Physical Notes * HPI (History of Present Illness) Category Sub-Category Detail Notes COVID-19 Screening Questions Have you had any new onset fever, chills, cough, congestion, sore throat, shortness of breath, muscle aches?: No Examination Category Sub-Category Detail Notes General Examination GENERAL APPEARANCE: pleasant , well nourished, well developed, in no acute distress, calm and relaxed HEAD: atraumatic, normocep halic EYES: eomi, perrla, anicte gautam, conjugate EARS: normal NOSE: septum intact NECK/THYROID: no jugular venous di stention, no carotid bruit, thyroid normal HEART: no clicks, gallops, murmurs, or rubs, regular rhythm, S1, S2 normal, no s3, or vascular bruits LUNGS: clear to auscultatio n ABDOMEN: bowel sounds normal, no ascites, no organomegaly, no mass NEUROLOGIC: alert and oriented, cranial nerves 2-12 grossly intact, deep tendon reflexes 2+ symmetrical, motor strength normal upper and lower extremities, sensory exam intact SKIN: no suspicious lesion s, anicteric PERIPHERAL PULSES: normal BREASTS: no masses palpable b ilaterally MUSCULOSKELETAL: extremities unremark able, no clubbing, cyanosis or edema LYMPH NODES: no enlarged lymph no german,spleen normal RECTAL EXAM: not examined PSYCH: alert, oriented ORAL CAVITY: normal, unremarkable
--- OUTSIDE RECORDS SUMMARY | 2024-10-11 12:00 | XMS_ITS ---
Author Organization Trell Lorenzo III, MD Address [address] [place] [address] Care Team Providers Care Toll Bridge Operator Name Role Phone Dr. Trell Lorenzo III Primary Care Provider Allergies Allergen (clinical drug ingredient) Drug/Non Drug Allergy documented on EMR Reaction Allergy Type Onset Date Status Adhesive Unknown Allergy Active REASON FOR VISIT follow up Medications Medication SIG (Take, Route, Frequency, Duration) Notes Start Date End Date Status hydrOXYzine HCl 25 MG 1 tablet as needed Orally as needed for anxiety 11/06/2023 Active SUMAtriptan Active Magnesium Oxide 250 MG 1 tablet as neede d Orally Once a day Active Cetirizine HCl 10 MG TAKE 1 TABLET BY MO [facility] ONCE DAILY FOR ALLERGIES Oral Active Albuterol Sulfate HFA 108 (90 Base) MCG/ACT Inhalation Active Propranolol HCl 10 MG TAKE 1 TABLET BY OUT 3 TIMES DAILY NEEDED (PALPITATIONS). Oral Active OXcarbazepine 150 MG TAKE 1 TABLET BY MO UT THREE TIMES A DAY Oral Active Ketoconazole 2 % 1 application Solid Waste Division Supervisor ally twice a day 09/13/2024 Active Social History Tobacco Use: Social History Observation Description Date Details (start date - stop date) Never Smoker NA - NA Sex Assigned At : Social History Observation Description Sex Assigned At Female Tobacco Use/Smoking Question Answer Notes Patient is a nonsmoker Encounters Encounter Location Date Provider Diagnosis Trell Lorenzo III, MD [address] [place] [address] [place] [address] 10/11/2024 Trell Lorenzo Plan Of Treatment Medication Medication Name Sig Start Date Stop Date Notes hydrOXYzine HCl 25 MG 1 tablet as needed Orally as needed for anxiety 11/06/2023 SUMAtriptan Magnesium Oxide 250 MG 1 tablet as neede d Orally Once a day Cetirizine HCl 10 MG TAKE 1 TABLET BY MO [facility] ONCE DAILY FOR ALLERGIES Oral Albuterol Sulfate HFA 108 (9 0 Base) MCG/ACT Inhalation Propranolol HCl 10 MG TAKE 1 TABLET BY M OUTH 3 TIMES DAILY NEEDED (PALPITATIONS). Oral OXcarbazepine 150 MG TAKE 1 TABLET BY MO [facility] THREE TIMES A DAY Oral Ketoconazole 2 % 1 application Solid Waste Division Supervisor ally twice a day 09/13/2024 Next Appt Details Provider Name:Trell Luis M Maura , 04/14/2025 09:30:00 AM, [address] [place] [address] [address], [place], [address], Provider Name:Trell Asencio Maura , 10/17/2025 09:30:00 AM, [address] [place] [address] [address], [place], [address], Progress Notes * Ericka WOLFE LDOB:1995 (29 yo F)Acc No.[id number]:10/11/2024 Progress Notes Patient: Bob MEDINABARIEricka Provider: Luís Lorenzo MD :1995 A ge:28 Y S ex:Female Date:10/11/2024 Address:[address] [place], [place] [id number] Subjective: * Chief Complaints: * 1 . [...] headaches, Complex migraines, Childhood otitis requiring myringotomies, [id number], Asthma, Overweight. * Surgical History: B ilateral myringotomies , Skin grafted eardrum age 14 , [id number] Termination , No history . 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 She is engaged to be . She does not smoke cigarettes. She does not drink alcohol. She has no history of substance use disorder. She was born and raised in [place]. She has no advent objection to blood transfusion. * Medications: T [...] exam intact. PSYCH: a lert, oriented. Assessment: Plan: * Treatment: * Images: * The named appointment provid er may or may not be the originator of this progress note, and it is not deemed complete until electronically signed by the appointment provider. Sign off status: Pending * Provider: Luís Lorenzo MD Date: 0 10/11/2024 Generated for Sharon wilkes/Faxing/eTransmitting on: 1 02/17/2024 10:10 AM EST History and Physical Notes * [...]
--- OUTSIDE RECORDS SUMMARY | 2024-10-15 10:00 | XMS_ITS ---
Author Organization Trell Lorenzo III, MD Address [address] [address] Care Team Providers Care Human Resources Services Specialist Name Role Phone Dr. Trell Lorenzo III Primary Care Provider [phone] Allergies Allergen (clinical drug ingredient) Drug/Non Drug [...] Speciality Internal M edicine Referred Provider Neurology [facility] Referred Provider Specialty Neurology General Notes Mone Fuller 10/21/2024 11:06:42 AM > Referral faxed with progress note, Mone Fuller 10/23/2024 03:17:26 PM > Referral has been received but patient is not scheduled at this time Referral Priority Routine REASON FOR VISIT Annual Exam Medications Medication SIG (Take, Route, Frequency, Duration) Notes Start Date End Date Status Ketoconazole 2 % 1 application Well Reactivator Operator ally twice a day 09/13/2024 Active Cetirizine HCl 10 MG TAKE 1 TABLET BY [facility] ONCE DAILY FOR ALLERGIES Oral PRN Active [...] Date Provider Diagnosis Trell Lorenzo III, MD [address] [place] [address] [address] [place], [place] [address] 10/15/2024 Trell Lorenzo Vestibular migraine G43.809 ; [...] Date Notes Ketoconazole 2 % 1 application Well Reactivator Operator ally twice a day 09/13/2024 Cetirizine HCl 10 MG TAKE 1 TABLET BY [facility] ONCE DAILY FOR ALLERGIES Oral PRN Albuterol [...] Evaluate and Treat Recurrent headaches Recurrent Migraines, [facility] Next Appt Details Follow Up: 6 Months, Reason: OV Provider Name:Trell Lorenzo , 04/14/2025 09:30:00 AM, [address] [place] [address] [address], [place], [address], Provider Name:Trell Lorenzo , 10/17/2025 09:30:00 AM, [address] [place] [address] [address], [place], [address], Progress Notes * Ericka WOLFE LDOB:1995 (28 yo F)Acc No.[id number]:10/15/2024 Progress Notes Patient: Ericka GUPTA Provider: Luís Lorenzo MD :1995 A ge:28 Y S ex:Female Date:10/15/2024 Address:[address] [place], [place] [id number] Subjective: * Chief Complaints: * A nnual [...] ilateral myringotomies Skin grafted eardrum age 14 [id number] Termination No history * Hospitalization/Major Diagno stic [...] N egative 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 She is engaged to be . She does not smoke cigarettes. She does not drink alcohol. She has no history of substance use disorder. She was born and raised in [place]. She has no scientologist objection to blood transfusion. * Medications: T [...] N ot examined, This is done by SULFIDE HEAD OPERATOR. ABDOMEN: b owel sounds normal, no ascites, no organomegaly, no mass: overweight. RECTAL EXAM: n ot examined, This is done by SULFIDE HEAD OPERATOR. MUSCULOSKELETAL: e xtremities unremarkable, no clubbing, cyanosis [...] * Treatment: 2. T ension headache Referral To:[facility] Neurology Reason:Evaluate and Treat Recurrent [...] 1 application, Externally, twice a day. Referral To:[facility] Neurology Reason:Evaluate and Treat Recurrent [...] 10/15/2024 Generated for Angelinai katrin/Ramakrishna/eTransmitting on: 1 02/17/2024 10:09 AM EST History [...] Not examined, This i s done by SULFIDE HEAD OPERATOR MUSCULOSKELETAL: extremities unremark able, no clubbing, cyanosis or edema LYMPH NODES: no enlarged lymph no german,spleen normal RECTAL EXAM: not examined, This i s done by SULFIDE HEAD OPERATOR PSYCH: alert, oriented: cog nitive function intact: cooperative with exam: good eye contact: judgement and insight good: mood/affect full range: speech clear: thought process logical, goal directed ORAL CAVITY: normal, unremarkable Consultation Request Notes Referral Date Referring Provider Referred Provider Not anuja 10/15/2024 Trell Lorenzo Neurology [facility] Evaluate and Treat Recurrent headaches Recurrent Migraines
--- OUTSIDE RECORDS SUMMARY | 2024-11-12 12:00 | XMS_ITS ---
Author Organization Trell Lorenzo III, MD Address [address] [place] [address] Care Team Providers Care Tax Form Preparer Name Role Phone Dr. Trell Lorenzo III Primary Care Provider Allergies Allergen (clinical drug ingredient) Drug/Non Drug Allergy documented on EMR Reaction Allergy Type Onset Date Status Adhesive Unknown Allergy Active REASON FOR VISIT New Concern Medications Medication SIG (Take, Route, Frequency, Duration) Notes Start Date End Date Status SUMAtriptan PRN Active Ketoconazole 2 % 1 application Credit Authorizer ally twice a day 09/13/2024 Active Magnesium Oxide 250 MG 1 tablet as neede d Orally Once a day Active Albuterol Sulfate HFA 108 (90 Base) MCG/ACT Inhalation Active Cetirizine HCl 10 MG TAKE 1 TABLET BY [facility] ONCE DAILY FOR ALLERGIES Oral PRN [...] Date Provider Diagnosis Trell Lorenzo III, MD [address] [place] [address] [place] [address] 11/12/2024 Trell Lorenzo Plan Of Treatment Medication Medication Name Sig Start Date Stop Date Notes SUMAtriptan PRN Ketoconazole 2 % 1 application Credit Authorizer ally twice a day 09/13/2024 Magnesium Oxide 250 MG 1 tablet as neede d Orally Once a day Albuterol Sulfate HFA 108 (9 0 Base) MCG/ACT Inhalation Cetirizine HCl 10 MG TAKE 1 TABLET BY [facility] ONCE DAILY FOR ALLERGIES Oral PRN Ritalin 10 MG [address] omach Orally Twice a day hydrOXYzine HCl 25 MG 1 tablet as needed Orally as needed for anxiety 11/06/2023 Next Appt Details Provider Name:Trell Asencio Maura , 04/14/2025 09:30:00 AM, [address] [place] [address] [address], [place], [address], Provider Name:Trell Asencio Maura , 10/17/2025 09:30:00 AM, [address] [place] [address] [address], [place], [address], Progress Notes * Ericka WOLFE LDOB:1995 (29 yo F)Acc No.[id number]:11/12/2024 Progress Notes Patient: Ericka GUPTA Provider: Luís Lorenzo MD :1995 A ge:28 Y S ex:Female Date:11/12/2024 Address:[address] [place], [place] [id number] Subjective: * Chief Complaints: * 1 . [...] headaches, Complex migraines, Childhood otitis requiring myringotomies, [id number], Asthma, Overweight. * Surgical History: B ilateral myringotomies , Skin grafted eardrum age 14 , [id number] Termination , No history . 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 She is engaged to be . She does not smoke cigarettes. She does not drink alcohol. She has no history of substance use disorder. She was born and raised in [place]. She has no mosque objection to blood transfusion. * Medications: T [...] MD Date: Generated for Sharon wilkes/Ramakrishna/eTransmitting on: 02/17/2024 10:08 AM EST History and [...]
--- NOTE | 2024-12-17 09:21 | MHC.OFFVIS ---
Vital Signs 12/17/24 09:51 Height 5 ft 2 in Weight 140 lb BMI 25.6 BP 114/78 Blood Pressure Location Rt brachial Position Sitting Respiration 17 Pulse 71 Pulse Source Pulse Oximeter Pulse Oximetry (%) 98 Oxygen Delivery Method Room Air Intake Visit Reasons: recurrent headaches Allergies cat dander (cats) Allergy (Unknown, Verified 12/17/24 09:21) Unknown HPI Comments Details: Ericka is a 29-year-old female patient with a past medical history of tinnitus, anxiety, asthma, vertigo, here today for a headache evaluation. She was referred by primary care who notes a history of vestibular migraine and tension-type headaches. The patient tells me today that she has been experiencing headaches before the age of 10. She experiences headaches currently at a rate of 4-5 times per week and each headache can last up to couple of days or just a few hours within a day. Headaches can be moderate to severe in intensity and described as a throbbing, pulsing, pressure-like, or stabbing pain and in general can be variable. Headaches are predominantly left-sided but at times can be both. Her pain is often to the retro-orbital, temporal, and frontal areas and can radiate to the back of the head and neck. Her headaches are accompanied by nausea, smell sensitivity, dizziness, light sensitivity, sensitivity to touch, difficulty with concentration, fatigue, and feeling congested. She has no positional component to her headaches. She was getting very bad vestibular symptoms with her headaches but more recently has had less vestibular symptoms. She did see some improvement in her headaches after coming off of oral ocp. She also notes some aura symptoms including blurry vision, swirling lights, stars, and halos around lights in her vision. Sometimes she notices these before her headaches but can start says up to an hour before her headaches. She has had an episode of bilateral weakness and paresthesias and difficulty with word finding that was related to a migraine episodes. She was seen in the ER after this event and had a normal MRI during the workup. She has seen neurology in the past. She had been seen in the past by [facility] neurology and had been recommended magnesium supplementation. She has not seen significant improvement with that. She has been followed by ENT for several ear surgeries and has been told by them that her symptoms likely repeasent vestibular migraine. Headache characteristics: Time of onset: Before age 10 Location: Retro-orbital, temporal, and frontal Radiation: Behind head and neck Positional component: No Character: Throbbing, pulsating, pressure-like, and stabbing Severity: Moderate to severe Duration: Hours up to a couple of days-variable Frequency: 4-5 days per week Acute aggravating factors: Exercise, alcohol, sleep deprivation, skipping meals, air travel, dehydration, menstruation, altitude change, weather changes, stress, strong scents, high-pitched noises, lightening Acute relieving factors: Rest in dark room Associated symptoms: Nausea, light and sound sensitivity, dizziness, allodynia, difficulty concentrating, sensitivity to sound, fatigue, feeling of congestion Aura: Swirls in vision Headache triggers: Exercise, alcohol, sleep deprivation, skipping meals, air travel, dehydration, menstruation, altitude change, weather changes, stress, strong scents, high-pitched noises, lightening Relation to menses: Will regularly get worsening migraines with her menses Other related background information: Sleep: Sleep has improved since taking hydroxyzine. Stressors: Travel for work Hydration: Reports that she drinks 4-5 16oz water bottles throughout the day and more in the evening Caffeine intake: Very rare - causes jitteriness and anxiety Alcohol intake: Socially- and rarely Substance use:None Tobacco use:None Last eye exam: Within the past year Last dental visit: About 3 months ago. Denies clenching or grinding History of head injury:None Family planning considerations: No plans to become but no means of protection at this time Past medication trials: Tylenol-No benefit Ibuprofen- Helps at 800mg dose Excedrin- Helps but can cause jitteriness Sumatriptan- No significant benefit Magnesium 500mg- No significant improvement and some GI side-effects (avoid beta blockers d/t history of asthma) (in a trial period with psychiatry for moods) Prior workup: MRI completed at [facility] Medical History (Updated 12/17/24 @ 10:37 by Kylah Mahoney CNP) Headache Asthma Vertigo Asthma Anxiety Tinnitus of both ears Recurrent headache Family History (Updated 12/18/23 @ 13:42 by Chelsea Martinez) Paternal Grandfather Schizophrenia Mother Bipolar 1 disorder Female Reproductive History Menstrual Age of Menarche: 11 Number of Living Children: 0 Review of Systems Const All systems reviewed & are unremarkable except as noted in HPI and below Physical Exam Vital Signs: Last Vital Signs Pulse 71 12/17/24 09:51 Resp 17 12/17/24 09:51 BP 114/78 12/17/24 09:51 Pulse Ox 98 12/17/24 09:51 Oxygen Delivery Method Room Air 12/17/24 09:51 BMI result Body Mass Index 25.6 Const General: cooperative, healthy appearing, comfortable and no acute distress Nutritional Appearance: well nourished Orientation/consciousness: patient oriented x3 Limitations: no limitations HEENT Head: Yes normal to inspection and Yes normocephalic Eyes General: appearance normal, both eyes and all related structures Visual Ann: normal visual ann by confrontation Alignment and Position: alignment normal Periorbital: periorbital findings normal Eyelids: Yes eyelids normal Conjunctivae: conjunctivae normal Sclerae: sclerae normal Direct Ophthalmoscopy: normal light reflex, no papilledema and fundi normal bilaterally Neck Neck: Yes normal visual inspection and Yes full ROM General: Yes no CVA tenderness Back/Spine/Pelvis Back: no CVA tenderness Cervical Spine: normal cervical lordosis Thoracic/Lumbar Spine: thoracic and lumbar spine normal to inspection Neuro General: patient oriented x3 and deep tendon reflexes 2+ bilaterally Cranial nerves: Yes CN's II-XII intact bilaterally and Yes Facial sensation intact/muscles of mastication intact Cognition (Neuro): normal cognition Gait exam (Neuro): Normal gait present Motor exam (neuro): 5/5 motor strength present throughout and no tremor noted Sensory Exam: double simultaneous stimulation for sensation normal Romberg Test: Negative Pupils: Normal pupillary reactivity/response: bilateral Psych Appearance: grossly normal Mental Status: mental status grossly normal Speech and movement: Normal speech and movement present and Clear speech present Affect: normal affect Attitude: cooperative Thought process: Normal thought process present Thought content: Normal thought content present Insight: Good insight present (Psych) Judgement: Good judgement present (Psych) Assessment & Plan Assessment & Plan (1) Chronic migraine without aura without status migrainosus, not intractable: Code(s): G43.709 - Chronic migraine without aura, not intractable, without status migrainosus Category: Medical Plan Ericka is a 29-year-old female patient with a past medical history of tinnitus, anxiety, asthma, vertigo, here today for a headache evaluation. Headache patterns at this time are consistent with a diagnosis of chronic migraine. Historically she has had what is described as some visual auras, vestibular symptoms, and other complicated features including speech changes and sensations of weakness and paresthesias to her bilateral upper extremities. She does report having an MRI at [facility] which I will obtain an have scanned into the chart. She reports it being normal. Her exam today was also normal. She is not currently on any preventatives. She does note however that she would like to become in the next few years and she is not currently trying actively to become though is not currently using any protection. We did discuss that most preventive migraine medications are not recommended during . She would like to try an anti CGRP option especially given that we should avoid beta-blockers due to her history of asthma, tricyclics due to her concurrent use of hydroxyzine, and topiramate as she has been working with Psychiatry for medications that are for her moods. I am recommending a GEPANT opposed to a mAb because of the shorter half-life option should she become . We discussed a trial of Nurtec or Qulipta. She favors the Qulipta because of the daily dosing as she does feel that she may be more likely to forget the Nurtec if she is not taking it daily. - Trial of Qulipta 60 mg daily -Continue magnesium supplementation -For now, we will make no changes to her acute therapy but re-evaluate this at future visits once migraines are better controlled. In the interim, she was encouraged to limit the use of ibuprofen which she can use sparingly for acute migraine attacks Coding Level of Care Code New Pt Level 4 (96635) Diagnoses Chronic migraine without aura without status migrainosus, not intractable G43.709
[2024-12-17 09:51] VITALS: BP 114/78; PULSE 71; RESP 17; O2SAT 98; BMI 25.6
--- OUTSIDE RECORDS SUMMARY | 2024-12-17 10:10 | XMS_ITS | Patient Health Record ---
Author Organization Trell Lorenzo III, MD Address [address] [place] [address] Care Team Providers Care Implementation Specialist Payroll Name Role Phone Dr. Trell Lorenzo III Primary Care Provider Allergies Allergen (clinical drug ingredient) Drug/Non Drug Allergy documented on EMR Reaction Allergy Type Onset Date Status Adhesive Unknown Allergy Active Results Component Value Reference Range Notes Complete Blood Count Auto Di ff Reviewed date:02/10/2024 05:23:34 PM Interpretation: Performing Lab:[facility], [address] [place] [id number] Notes/Report: White Blood Count 6.9 4.8-10.8 X10*3/uL Red Blood Count 4.31 4.20-5.50 X10*6/uL Hemoglobin 13.8 12.0-16.0 g/dl Hematocrit 41.0 37.0-47.0 % Mean Corpuscular Volume 95.1 80.0-98.0 fL Mean Corpuscular Hemoglobin 32.0 27.0-33.0 pg Mean Corpuscular HGB Conc 33.7 31.0-35.0 g/dl Red Cell Distribution Width 12.0 11.0-16.0 % Platelet Count 284 160-400 X10*3/uL Mean Platelet Volume 10.7 9.4-12.3 fL Neutrophils Percent Auto 54.2 45-73 % Imm Gran Pct Auto 0.3 0.0-0.4 % Lymphocytes Percent Auto 36.9 20-40 % Monocytes Percent Auto 5.4 2-11 % Eosinophils Percent Auto 2.6 0-4 % Basophils Percent Auto 0.6 0-2 % NRBC Pct Auto 0.0 0.0-0.2 /100WBC Neutrophils Absolute Auto 3.7 2.0-8.3 x10*3/u L Imm Gran Abs Auto 0.02 0.00-0.03 X10*3/uL Lymphocytes Absolute Auto 2.5 1.2-4.9 X10*3/u L Monocytes Absolute Auto 0.4 0.1-1.2 X10*3/uL Eosinophils Absolute Auto 0.2 0.0-0.4 X10*3/u L Basophils Absolute Auto 0.0 0.0-0.2 X10*3/uL NRBC Abs Auto 0.000 0.0-0.012 X10*3/uL Reason For Referral Reason Evaluate and Treat Recurrent headaches Recurrent Migraines Diagnosis 1 Tension headache (G4 4.209) Diagnosis 2 Episodic migraine (G 43.909) Diagnosis 3 Vestibular migraine (G43.809) Referral Organization Trell Lorenzo III, MD Referring Provider First Name Trell Referring Provider Last Name Maura Referring Provider Speciality Internal M edicine Referred Provider Neurology [facility] Referred Provider Specialty Neurology General Notes Mone Fuller 10/21/2024 11:06:42 AM > Referral faxed with progress note, Mone Fuller 10/23/2024 03:17:26 PM > Referral has been received but patient is not scheduled at this time Referral Priority Routine Medications Medication SIG (Take, Route, Frequency, Duration) Notes Start Date End Date Status Ritalin 10 MG [address] omach Orally Twice a day Active SUMAtriptan PRN Active hydrOXYzine HCl 25 MG 1 tablet as needed Orally as needed for anxiety 11/06/2023 Active Ketoconazole 2 % 1 application [employer] ally twice a day 09/13/2024 Active Magnesium Oxide 250 MG 1 tablet as neede d Orally Once a day Active Albuterol Sulfate HFA 108 (90 Base) MCG/ACT Inhalation Active Cetirizine HCl 10 MG TAKE 1 TABLET BY [facility] ONCE DAILY FOR ALLERGIES Oral PRN Active Immunizations Vaccine Route Administration Date Status Comme nts Hepatitis B (20 and more) Unknown 08/30/2018 Administer ed MMR Unknown 04/12/2016 Administered Hepatitis A (adult) Unknown 02/16/2016 Administered COVID 19 Moderna Unknown 04/16/2020 Administered Hepatitis B Unknown 04/12/2016 Administered Influenza, quad Unknown 01/05/2023 Administered Influenza no Preserv 3 and > Unknown 02/16/2016 Adminis tered HPV Unknown 04/12/2016 Administered Influenza, quad Unknown 02/16/2016 Administered Tdap Unknown 02/28/2017 Administered COVID 19 Moderna Unknown 03/06/2020 Administered Influenza, quad Unknown 10/12/2016 Administered Hepatitis A (adult) Unknown 02/11/2015 Administered COVID 19 Moderna Unknown 03/03/2021 Administered DTaP Unknown 06/06/1996 Administered DTaP Unknown 04/06/1996 Administered DTaP Unknown 03/09/1996 Administered Hepatitis B Unknown 06/06/1996 Administered Hepatitis B Unknown 01/07/1996 Administered Hepatitis B Unknown 1995 Administered HPV Unknown 05/22/2009 Administered HPV Unknown 01/20/2009 Administered HPV Unknown 11/19/2008 Administered Hib 4 dose schedule Unknown 06/12/1997 Administered Hib 4 dose schedule Unknown 06/06/1996 Administered Hib 4 dose schedule Unknown 04/06/1996 Administered Hib 4 dose schedule Unknown 03/09/1996 Administered IPV Unknown 01/07/1996 Administered IPV Unknown 04/06/1996 Administered IPV Unknown 06/12/1997 Administered IPV Unknown 11/29/1999 Administered Menactra (MCV4) Unknown 06/26/2007 Administered Menactra (MCV4) Unknown 05/22/2014 Administered MMR Unknown 11/09/1996 Administered MMR Unknown 06/12/1997 Administered MMR Unknown 11/29/1999 Administered MMR Unknown 04/12/2016 Administered PCV Unknown 11/29/1999 Administered PCV Unknown 01/27/2000 Administered Tdap Unknown 06/26/2007 Administered Td (adult) Unknown 09/26/2007 Administered Varicella Unknown 12/26/1997 Administered Varicella Unknown 06/26/2007 Administered Social History Tobacco Use: Social History Observation [...] Never (0 point) Points 1 Interpretation Negative Problems Problem Type SNOMED Code ICD Code Onset Dates Problem Status W/U Status Risk Notes Problem 591886798 Overweight (E66.3) Active confirmed She is slightly overweight with a body mass index of 26. We discussed her diet and nutrition. We made a plan to lose weight at a rate of one half of a pound per week until the body mass index is in the normal range. Problem 78696979 Anxiety (F41.9) Active confirmed She has numerous symptoms which are exacerbated by anxiety. We have discussed ways of reducing anxiety through lifestyle modification, cognitive therapy and medication with an SSRI. Problem 26827459 Pityriasis versicolor (B36.0) Active confirmed The rash has resolved Problem 7775051592139 Tinnitus, bilateral (H93.13) Active confirmed She has this episodically in neurology is aware.She has an appointment with ENT in September 2023 to address the issue of the previous myringotomies and her current tinnitus. Her hearing will be evaluated at that time. Problem 17593225 Fungal dermatitis (B36.9) Active confirmed She will be treated with terbinafine for several weeks with a followup visit. Problem 407068830 Mild intermittent asthma without complication (J45.20) Active confirmed She has had episodes of asthma since childhood. I have refilled a prescription for an albuterol inhaler. She will come to the office if this becomes severe. Problem 895381433 Vertigo (R42) Active confirmed She has an appointment with ENT in September 2023. The vertigo is not present now. Problem 874922757 PVC (premature ventricular contraction) (I49.3) Active confirmed Problem 813456934 History of otitis media (Z86.69) Active confirmed She has a history of myringotomies as a child. She has an appointment with ENT in September of this year. There is no current ear infection. Problem [id number] Episodic migraine (G43.909) Active confirmed She will continue to see neurology and use the sumatriptan. Problem 777324175 Tension headache (G44.209) Active confirmed She will continue on her use of acetaminophen and ibuprofen. Problem 373213896 Vestibular migraine (G43.809) Active confirmed Dr. Doss has given her sumatriptan. Vital Signs Heart Rate 68 /min 10/15/2024 Temperature 99.3 degrees Fahrenheit 10/15/2024 Respiratory Rate 16 /min 10/15/2024 Oximetry 98 % 10/15/2024 Blood pressure diastolic 65 mm Hg 10/15/2024 Height 62 in 10/15/2024 Blood pressure systolic 107 mm Hg 10/15/2024 Weight 144 lbs 10/15/2024 BMI 26.34 kg/m2 10/15/2024 Encounters Encounter Location Date Provider Diagnosis Trell Lorenzo III, MD [address] [place] [address] [place] [id number] 10/15/2024 Trell Lorenzo Vestibular migraine G43.809 ; Overweight E66.3 ; Tinnitus, bilateral H93.13 ; Tension headache G44.209 and Pityriasis versicolor B36.0 Trell Lorenzo III, MD [address] [place] [address] [place] [address] 03/01/2024 Trell Lorenzo Premature ventricula r contractions I49.3 ; Vestibular migraine G43.809 ; Anxiety F41.9 ; Tinnitus, bilateral H93.13 ; Mild intermittent asthma without complication J45.20 ; Vertigo R42 ; Tension headache G44.209 and Overweight E66.3 Trell Lorenzo III, MD [address] [place] [address] [place] [address] 09/13/2024 Trell Lorenzo Pityriasis versicolo r B36.0 ; Tinnitus, bilateral H93.13 ; Mild intermittent asthma without complication J45.20 ; Tension headache G44.209 and Vertigo R42 Trell Lorenzo III, MD [address] [place] [address] [place] [address] 09/18/2024 Trell Lorenzo Pityriasis versicolo r B36.0 ; Mild intermittent asthma without complication J45.20 ; Vertigo R42 ; Overweight E66.3 and Vestibular migraine G43.809 Trell Lorenzo III, MD [address] [place] [address] [place] [address] 08/28/2024 Trell Lorenzo Fungal dermatitis B36.9 ; Tinnitus, bilateral H93.13 ; Mild intermittent asthma without complication J45.20 ; Vertigo R42 and Tension headache G44.209 Trell Lorenzo III, MD [address] [place] [address] [address] [place], [place] [address] 09/10/2024 Trell Lorenzo III, MD [address] [place] [address] [address] [place] [address] 09/10/2024 Trell Lorenzo Assessments Encounter Date Diagnosis (ICD Code) Assessment Notes Treatment Notes Treatment Clinical Notes 10/15/2024 Overweight (ICD-10 - E66.3) She is slightly overweight with a body mass index of 26. We discussed her diet and nutrition. We made a plan to lose weight at a rate of one half of a pound per week until the body mass index is in the normal range. 10/15/2024 Vestibular migraine (ICD-10 - G43.809) Dr. Doss has given her sumatriptan. 03/01/2024 Vestibular migraine (ICD-10 - G43.809) Dr. Doss has given her sumatriptan. 03/01/2024 Premature ventricular contractions (ICD-10 - I49.3) Bottle Caser says given her a beta pieter prescription to take as needed.She reports a problem has resolved 09/13/2024 Pityriasis versicolor (ICD-10 - B36.0) She [...] hearing will be evaluated at that time. 09/18/2024 Pityriasis versicolor (ICD-10 - B36.0) She [...] the office if this becomes severe. 08/28/2024 Tinnitus, bilateral (ICD-10 - H93.13) She has this episodically in neurology is aware.She has an appointment with ENT in September 2023 to address the issue of the previous myringotomies and her current tinnitus. Her hearing will be evaluated at that time. 08/28/2024 Fungal dermatitis (ICD-10 - B36.9) She will be treated with terbinafine for several weeks with a followup visit. 10/15/2024 Tinnitus, bilateral (ICD-10 - H93.13) She has this episodically in neurology is aware.She has an appointment with ENT in September 2023 to address the issue of the previous myringotomies and her current tinnitus. Her hearing will be evaluated at that time. 03/01/2024 Anxiety (ICD-10 - F41.9) She has numerous symptoms which are exacerbated by anxiety. We have discussed ways of reducing anxiety through lifestyle modification, cognitive therapy and medication with an SSRI. 09/13/2024 Mild intermittent asthma without complication (ICD-10 - J45.20) She has had episodes of asthma since childhood. I have refilled a prescription for an albuterol inhaler. She will come to the office if this becomes severe. 09/18/2024 Vertigo (ICD-10 - R42) She has an appointment with ENT in September 2023. The vertigo is not present now. 08/28/2024 Mild intermittent asthma without complication (ICD-10 - J45.20) She has had episodes of asthma since childhood. I have refilled a prescription for an albuterol inhaler. She will come to the office if this becomes severe. 10/15/2024 Tension headache (ICD-10 - G44.209) She will continue on her use of acetaminophen and ibuprofen. 03/01/2024 Tinnitus, bilateral (ICD-10 - H93.13) She has this episodically in neurology is aware.She has an appointment with ENT in September 2023 to address the issue of the previous myringotomies and her current tinnitus. Her hearing will be evaluated at that time. 09/13/2024 Tension headache (ICD-10 - G44.209) She will continue on her use of acetaminophen and ibuprofen. 09/18/2024 Overweight (ICD-10 - E66.3) She is slightly overweight with a body mass index of 26. We discussed her diet and nutrition. We made a plan to lose weight at a rate of one half of a pound per week until the body mass index is in the normal range. 08/28/2024 Vertigo (ICD-10 - R42) She has an appointment with ENT in September 2023. The vertigo is not present now. 10/15/2024 Pityriasis versicolor (ICD-10 - B36.0) The rash has resolved 03/01/2024 Mild intermittent asthma without complication (ICD-10 - J45.20) She has had episodes of asthma since childhood. I have refilled a prescription for an albuterol inhaler. She will come to the office if this becomes severe. 09/13/2024 Vertigo (ICD-10 - R42) She has an appointment with ENT in September 2023. The vertigo is not present now. 09/18/2024 Vestibular migraine (ICD-10 - G43.809) Dr. Doss has given her sumatriptan. 08/28/2024 Tension headache (ICD-10 - G44.209) She will continue on her use of acetaminophen and ibuprofen. 03/01/2024 Vertigo (ICD-10 - R42) She has an appointment with ENT in September 2023. The vertigo is not present now. 03/01/2024 Tension headache (ICD-10 - G44.209) She will continue on her use of acetaminophen and ibuprofen. 03/01/2024 Overweight (ICD-10 - E66.3) She is slightly overweight with a body mass index of 26. We discussed her diet and nutrition. We made a plan to lose weight at a rate of one half of a pound per week until the body mass index is in the normal range. Plan Of Treatment Pending Test Test Name Order Date PROFILE, FASTING (COMPREHENSIVE METABOLI C) 07/19/2023 LIPID PANEL 07/19/2023 FERRITIN 07/19/2023 CBC w DIFF 09/13/2023 CBC w DIFF 07/19/2023 SED RATE (ESR) 07/19/2023 Next Appt Details Provider Name:Trell Phanrne , 04/14/2025 09:30:00 AM, [address] [place] [address] [address], [place], [address], Provider Name:Trell Lorenzo , 10/17/2025 09:30:00 AM, [address] [place] [address] [address], [facility], [place], [address], Insurance Providers Payer Name Payer Address Payer Phone Subscriber Number Group Number Insured Name Patient Relationship to Insured Coverage Start Date Coverage End Date [employer] [address] TIARA CERVANTES [id number] Terrence Wolfe Spouse - patient is the spouse of the insured Medical (General) History Medical History History ICD Code Tinnitus of both ears H93.13 Anxiety F41.9 Asthma J45.909 Vertigo Tension headaches Complex migraines Childhood otitis requiring myringotomies [id number] Asthma Overweight Surgical History Surgery Date(Month/Year) No history [id number] Termination Skin grafted eardrum age 14 Bilateral myringotomies Hospitalization History Reason Date(Month/Year) No history
== END 2024-12-17 10:32 | disposition home or self-care (01) ==
LOC: HO.HSM 09:20
PROVIDERS: PCP Internal Medicine Medical Oncology; Visit Provider Nurse Practitioner
DX: G43.709 Chronic migraine without aura, not intractable, without status migrainosus (principal)
CPT/HCPCS: 99204

== ENCOUNTER 2024-12-19 09:24 | Outpatient (AMB) | payer OTHER, SELFPAY ==
--- OUTSIDE RECORDS SUMMARY | 2024-08-28 11:15 | XMS_ITS ---
Author Organization Trell Lorenzo III, MD Address [address] [place] [address] Care Team Providers Care Cell Tuber Hand Name Role Phone Dr. Trell Lorenzo III Primary Care Provider Allergies Allergen (clinical drug ingredient) Drug/Non Drug [...] Problem Status W/U Status Risk Notes Problem [id number] Fungal dermatitis (B36.9) Active confirmed She will [...] Date Provider Diagnosis Trell Lorenzo III, MD [address] [place] [address] [place], [place] [address] 08/28/2024 Trell Lorenzo Fungal dermatitis B36.9 ; [...] Name:Trell Lorenzo , 04/14/2025 09:30:00 AM, [address] [facility] [address], [place], [address], Provider Name:Trell Lorenzo , 10/17/2025 09:30:00 AM, [address] [facility] [address], [place], [address], Progress Notes * Ericka WOLFE LDOB:1995 (28 yo F)Acc No.[id number]:08/28/2024 Patient: Ericka GUPTA Provider: Luís Lorenzo MD :1995 A ge:28 Y S ex:Female Date:08/28/2024 Address:[address] [place], [place] [id number] Subjective: * Chief Complaints: * P ossible [...] ilateral myringotomies Skin grafted eardrum age 14 [id number] Termination No history * Hospitalization/Major Diagno stic [...] n onsmoker 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 She is engaged to be . She does not smoke cigarettes. She does not drink alcohol. She has no history of substance use disorder. She was born and raised in [place]. She has no baptism objection to blood transfusion. * Medications: T [...] 0 08/28/2024 Generated for Sharon wilkes/Ramakrishna/Alber on: 02/19/2024 10:44 AM EST History and Physical Notes * [...]
--- OUTSIDE RECORDS SUMMARY | 2024-09-10 04:13 | XMS_ITS ---
Author Organization Trell Lorenzo III, MD Address [address] [place] [address] [place] [address] Care Team Providers Care Educational Psychology Professor Name Role Phone Dr. Trell Lorenzo III Primary Care Provider REASON FOR VISIT update on her rash getting worse Social History Sex Assigned At : Social History Observation Description Sex Assigned At Female Encounters Encounter Location Date Provider Diagnosis Trell Lorenzo III, MD [address] [place] [address] [place] [address] 09/10/2024 Trell Lorenzo Plan Of Treatment Next Appt Details Provider Name:Trell Lorenzo , 04/14/2025 09:30:00 AM, [address] [place] [address] [place], [address], Provider Name:Trell Lorenzo , 10/17/2025 09:30:00 AM, [address] [place] [address] [place], [address], Progress Notes * Ericka WOLFE LDOB:1995 (28 yo F)Acc No.[id number]:09/10/2024 Patient: Bob MEDINABARI Ericka Méndez :1995 A ge:28 Y S ex:Female [address], [place], [address] * true * Date: Generated for Printi ng/Faxing/eTransmitting on: 02/19/2024 10:43 AM EST
--- OUTSIDE RECORDS SUMMARY | 2024-09-10 06:20 | XMS_ITS ---
Author Organization Trell Lorenzo III, MD Address [address] [place] [address] [place] [address] Care Team Providers Care Locomotive Electrician Name Role Phone Dr. Trell Lorenzo III Primary Care Provider Medications Medication SIG (Take, Route, Fr equency, Duration) Notes Start Date End Date Status Ketoconazole 2 % 1 application Property Loss Insurance Claim Adjuster ally twice a day for 14 days 09/10/2024 11/05/2024 Active Social History Sex Assigned At : Social History Observation Description Sex Assigned At Female Encounters Encounter Location Date Provider Diagnosis Trell Lorenzo III, MD [address] [place] [address] [place] [address] 09/10/2024 Trell Lorenzo Plan Of Treatment Medication Medication Name Sig Start Date Stop Date Notes Ketoconazole 2 % 1 application Property Loss Insurance Claim Adjuster ally twice a day for 14 days 09/10/2024 11/05/2024 Next Appt Details Provider Name:Trell Lorenzo , 04/14/2025 09:30:00 AM, [address] [place] [address] [place], [address], Provider Name:Trell Lorenzo , 10/17/2025 09:30:00 AM, [address] [place] [address] [place], [address], Progress Notes * Ericka WOLFE LDOB:1995 (28 yo F)Acc No.[id number]:09/10/2024 Patient: Bob Ericka SIN :1995 A ge:28 Y S ex:Female Address:[address] [place] [address], [place] [address] * Refills Start Ketoconazole Cream, 2 %, Externally, 60 Gram, 1 application, twice a day, 14 days, Refills=3 * true * Date: Generated for Sharon wilkes/Ramakrishna/Mooseitting on: 02/19/2024 10:45 AM EST
--- OUTSIDE RECORDS SUMMARY | 2024-09-13 04:00 | XMS_ITS ---
Author Organization Trell Lorenzo III, MD Address [address] [facility] [place] [address] Care Team Providers Care Welfare Analyst Name Role Phone Dr. Trell Lorenzo III [...] Oral Active Ketoconazole 2 % 1 application Hand Woodworking Sander ally twice a day 09/10/2024 Active Ketoconazole 2 % 1 application Hand Woodworking Sander ally twice a day for 14 days [...] Problem Status W/U Status Risk Notes Problem [id number] Pityriasis versicolor (B36.0) Active confirmed The rash has resolved Vital Signs Temperature 98.2 degrees Fahrenheit 09/14/19 25 Blood pressure systolic 130 mm Hg 09/14/19 25 Blood pressure diastolic 73 mm Hg 025 Heart Rate 64 /min 09/13/2024 Height 62 in 09/13/2024 Weight 142 lbs 09/13/2024 BMI 25.97 kg/m2 09/13/2024 Encounters Encounter Location Date Provider Diagnosis Trell Lorenzo III, MD [address] [place] [address] [place] [address] 09/13/2024 Trell Lorenzo Pityriasis versicolo r B36.0 [...] (PALPITATIONS). Oral Ketoconazole 2 % 1 application Hand Woodworking Sander ally twice a day 09/10/2024 Ketoconazole 2 % 1 application Hand Woodworking Sander ally twice a day for 14 days 09/13/2024 12/06/2024 Albuterol Sulfate HFA 108 (9 0 Base) MCG/ACT Inhalation Magnesium Oxide 250 MG 1 tablet as neede d Orally Once a day SUMAtriptan Cetirizine HCl 10 MG TAKE 1 TABLET BY [facility] ONCE DAILY FOR ALLERGIES Oral hydrOXYzine HCl 25 MG 1 tablet as needed Orally as needed for anxiety 11/06/2023 Next Appt Details Follow Up: Next Monday Mo rning, Reason: OV no tests recheck rash Provider Name:Trell Lorenzo , 04/14/2025 09:30:00 AM, [address] [place] [address] [place], [place], [address], Provider Name:Trell Lorenzo , 10/17/2025 09:30:00 AM, [address] [place] [address] [place], [place], [address], Progress Notes * Ericka WOLFE LDOB:1995 (28 yo F)Acc No.[id number]:09/13/2024 Progress Notes Patient: Ericka GUPTA Provider: Luís Lorenzo MD :1995 A ge:28 Y S ex:Female Date:09/13/2024 Address:[address] [place], [place] [id number] Subjective: * Chief Complaints: * R ashAsthmaMigraines [...] ilateral myringotomies Skin grafted eardrum age 14 [id number] Termination No history * Hospitalization/Major Diagno stic [...] n onsmoker 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 She is engaged to be . She does not smoke cigarettes. She does not drink alcohol. She has no history of substance use disorder. She was born and raised in [place]. She has no sabianist objection to blood transfusion. * Medications: T [...] 09/13/2024 Generated for Sharon wilkes/Ramakrishna/Jamilaransmitting on: 1 02/19/2024 10:44 AM EST History and Physical [...]
--- OUTSIDE RECORDS SUMMARY | 2024-09-18 04:30 | XMS_ITS ---
Author Organization Trell Lorenzo III, MD Address [address] [place] [address] Care Team Providers Care Associate Professor Of Musicology Name Role Phone Dr. Trell Lorenzo III Primary Care Provider Allergies Allergen (clinical drug ingredient) Drug/Non Drug Allergy documented on EMR Reaction Allergy Type Onset Date Status Adhesive Unknown Allergy Active REASON FOR VISIT Migraines, Rash Medications Medication SIG (Take, Route, Frequency, Duration) Notes Start Date End Date Status Cetirizine HCl 10 MG TAKE 1 TABLET BY [facility] ONCE DAILY FOR ALLERGIES Oral Active Magnesium Oxide 250 MG 1 tablet as neede d Orally Once a day Active Propranolol HCl 10 MG TAKE 1 TABLET BY [facility] 3 TIMES DAILY NEEDED (PALPITATIONS). Oral Active Albuterol Sulfate HFA 108 (90 Base) MCG/ACT Inhalation Active SUMAtriptan Active hydrOXYzine HCl 25 MG 1 tablet as needed Orally as needed for anxiety 11/06/2023 Active OXcarbazepine 150 MG TAKE 1 TABLET BY [facility] THREE TIMES A DAY Oral Active Ketoconazole 2 % 1 application Spanish Instructor ally twice a day 09/13/2024 Active Ketoconazole 2 % 1 application Spanish Instructor ally twice a day 09/10/2024 Active Social [...] Date Provider Diagnosis Trell Lorenzo III, MD [address] [place] [address] [address] [place], [place] [address] 09/18/2024 Trell Lorenzo Pityriasis versicolo r B36.0 [...] 10 MG TAKE 1 TABLET BY [facility] ONCE DAILY FOR ALLERGIES Oral Magnesium Oxide 250 MG 1 tablet as neede d Orally Once a day Propranolol HCl 10 MG TAKE 1 TABLET BY M [facility] 3 TIMES DAILY NEEDED (PALPITATIONS). Oral Albuterol Sulfate HFA 108 (9 0 Base) MCG/ACT Inhalation SUMAtriptan hydrOXYzine HCl 25 MG 1 tablet as needed Orally as needed for anxiety 11/06/2023 OXcarbazepine 150 MG TAKE 1 TABLET BY [facility] THREE TIMES A DAY Oral Ketoconazole 2 % 1 application Spanish Instructor ally twice a day 09/13/2024 Ketoconazole 2 % 1 application Spanish Instructor ally twice a day 09/10/2024 Next Appt Details Follow Up: 1 Week, Reason: O V Provider Name:Trell Lorenzo , 04/14/2025 09:30:00 AM, [address] [place] [address] [address], [place], [address], Provider Name:Trell Lorenzo , 10/17/2025 09:30:00 AM, [address] [place] [address] [address], [place], [address], Progress Notes * Ericka WOLFE LDOB:1995 (28 yo F)Acc No.[id number]:09/18/2024 Progress Notes Patient: Ericka GUPTA Provider: Luís Lorenzo MD :1995 A ge:28 Y S ex:Female Date:09/18/2024 Address:[address] [place], [place] [id number] Subjective: * Chief Complaints: * M igrainesRash [...] ilateral myringotomies Skin grafted eardrum age 14 [id number] Termination No history * Hospitalization/Major Diagno stic [...] n onsmoker 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 She is engaged to be . She does not smoke cigarettes. She does not drink alcohol. She has no history of substance use disorder. She was born and raised in [place]. She has no oriental orthodox objection to blood transfusion. * Medications: T [...] 0 09/18/2024 Generated for Sharon wilkes/Ramakrishna/Alber on: 02/19/2024 10:44 [...]
--- OUTSIDE RECORDS SUMMARY | 2024-09-18 12:30 | XMS_ITS ---
Author Organization Trell Lorenzo III, MD Address [address] [place] [address] [place] [address] Care Team Prov[address] Care Ct Tech Name Role Phone Dr. Trell Lorenzo III Primary Care Provider REASON FOR VISIT Telehealth Medications Medication SIG (Take, Route, Frequency, Duration) Notes Start Date End Date Status Propranolol HCl 10 MG TAKE 1 TABLET BY [facility] 3 TIMES DAILY NEEDED (PALPITATIONS). Oral Active Ketoconazole 2 % 1 application Set Up Inspector ally twice a day 09/13/2024 Active Ketoconazole 2 % 1 application Set Up Inspector ally twice a day 09/10/2024 Active OXcarbazepine 150 MG TAKE 1 TABLET BY [facility] THREE TIMES A DAY Oral Active Magnesium Oxide 250 MG 1 tablet as neede d Orally Once a day Active SUMAtriptan Active Albuterol Sulfate HFA 108 (90 Base) MCG/ACT Inhalation Active Cetirizine HCl 10 MG TAKE 1 TABLET BY [facility] ONCE DAILY FOR ALLERGIES Oral Active hydrOXYzine HCl 25 MG 1 tablet as needed Orally as needed for anxiety 11/06/2023 Active Social History Sex Assigned At : Social History Observation Description Sex Assigned At Female Encounters Encounter Location Date Provider Diagnosis Trell Lorenzo III, MD [address] [place] [address] [place] [address] 09/18/2024 Trell Lorenzo Pityriasis versicolo r B36.0 Assessments Encounter Date Diagnosis (ICD Code) Assessment Notes Treatment Notes Treatment Clinical Notes 09/18/2024 Pityriasis versicolor (ICD-10 - B36.0) She is going to try triamcinolone. A follow-up visit was arranged. She was referred to dermatology.She has tried and failed to respond to terbinafine and ketoconazole. Plan Of Treatment Medication Medication Name Sig Start Date Stop Date Notes Propranolol HCl 10 MG TAKE 1 TABLET BY [facility] 3 TIMES DAILY NEEDED (PALPITATIONS). Oral Ketoconazole 2 % 1 application Set Up Inspector ally twice a day 09/13/2024 Ketoconazole 2 % 1 application Set Up Inspector ally twice a day 09/10/2024 OXcarbazepine 150 MG TAKE 1 TABLET BY [facility] THREE TIMES A DAY Oral Magnesium Oxide 250 MG 1 tablet as neede d Orally Once a day SUMAtriptan Albuterol Sulfate HFA 108 (9 0 Base) MCG/ACT Inhalation Cetirizine HCl 10 MG TAKE 1 TABLET BY [facility] ONCE DAILY FOR ALLERGIES Oral hydrOXYzine HCl 25 MG 1 tablet as needed Orally as needed for anxiety 11/06/2023 Next Appt Details Provider Name:Trell Lorenzo , 04/14/2025 09:30:00 AM, [address] [place] [address] [address], [place], [address], Provider Name:Trell Lorenzo , 10/17/2025 09:30:00 AM, [address] [place] [address] [address], [place], [address], Progress Notes * Ericka WOLFE LDOB:1995 (29 yo F)Acc No.[id number]:09/18/2024 Patient: Bob KATHIAJEFFREYBARI Ericka L Provider: Luís Lorenzo MD :1995 A ge:28 Y S ex:Female Date:09/18/2024 Address:[address] [place], [place] [phone] Subjective: * Chief Complaints: * 1 . Telehealth. * HPI: * : Telehealth L ocation of provider rendering services: { ...} [address] [place] [address] [address] [facility] [address] L ocation of patient: a ddress listed in demographics for today's visit P atient identification confirmed using: COLTEN Arizmendi ame T elehealth method: T elephone only. Patient not visible to care provider. C onsent: P atient verbally consented to treatment, Patient verbally consented to billing insurance company, Patient informed of any privacy concerns related to method of visit Mike crews time spent with patient (mins) 1 5 * ROS: G eneral/Constitutional: pain o nly [...] S kin: Itching d enies. R ria d enies. S kin lesion(s)?denies. N eurologic: Difficulty speaking d enies. D izziness d enies.?Headache d enies. L ow back pain d enies. P sychiatric: Depressed mood d enies. * Medical History: * Medications: T rebecca hydrOXYzine HCl 25 MG Tablet 1 tablet as needed Orally as needed for anxiety , Taking SUMAtriptan , Taking Magnesium Oxide 250 MG Tablet 1 tablet as needed Orally Once a day , Taking Cetirizine HCl 10 MG Tablet TAKE 1 TABLET BY MOUTH ONCE DAILY FOR ALLERGIES Oral , Taking Albuterol Sulfate HFA 108 (90 Base) MCG/ACT Aerosol Solution Inhalation , Taking Propranolol HCl 10 MG Tablet TAKE 1 TABLET BY MOUTH 3 TIMES DAILY NEEDED (PALPITATIONS). Oral , Taking OXcarbazepine 150 MG Tablet TAKE 1 TABLET BY MOUTH THREE TIMES A DAY Oral , Taking Ketoconazole 2 % Cream 1 application Externally twice a day , Discontinued Ketoconazole 2 % Cream 1 application Externally twice a day , Medication List reviewed and reconciled with the patient Objective: * Vitals: Assessment: * Assessment: 1. P ityriasis versicolor - B36.0 N otes :She is going to try triamcinolone. A follow-up visit was arranged. She was referred to dermatology.She has tried and failed to respond to terbinafine and ketoconazole. Plan: * Treatment: 2. O thers Continue [...] Externally, twice a day. * Procedure Codes: 9 8012 SYNCH AUDIO-ONLY EST SF 10 * Images: * The named appointment provid er may or may not be the originator of this progress note, and it is not deemed complete until electronically signed by the appointment provider. Sign off status: Pending * Provider: Luís Lorenzo MD Date: 0 09/18/2024 Generated for Sharon wilkes/Ramakrishna/Mooseitting on: 02/19/2024 10:44 AM EST History and Physical Notes * HPI (History of Present Illness) Category Sub-Category Detail Notes Telehealth Location of [facility] rendering services:: {...} [address] [place] [address] Location of patient:: address listed in demographics for today's visit Patient identification confirmed using:: Name, Telehealth method:: Telephone only. Jeanie ent not visible to care provider. Consent:: Patient verbally c onsented to treatment, Patient verbally consented to billing insurance company, Patient informed of any privacy concerns related to method of visit Total time spent with patient (mins): 15
--- OUTSIDE RECORDS SUMMARY | 2024-09-27 10:45 | XMS_ITS ---
Author Organization Trell Lorenzo III, MD Address [address] [place] [address] Care Team Providers Care Manager Support Services Name Role Phone Dr. Trell Lorenzo III [...] 11/06/2023 Active Ketoconazole 2 % 1 application Facilities Administrator ally twice a day 09/13/2024 Active OXcarbazepine [...] Date Provider Diagnosis Trell Lorenzo III, MD [address] [place] [address] [place] [address] 09/27/2024 Trell Lorenzo Pityriasis versicolo r B36.0 [...] anxiety 11/06/2023 Ketoconazole 2 % 1 application Facilities Administrator ally twice a day 09/13/2024 OXcarbazepine 150 MG TAKE 1 TABLET BY MO UT THREE TIMES A DAY Oral Albuterol Sulfate HFA 108 (9 0 Base) MCG/ACT Inhalation Propranolol HCl 10 MG TAKE 1 TABLET BY M OUT 3 TIMES DAILY NEEDED (PALPITATIONS). Oral Next Appt Details Provider Name:Trell Lorenzo , 04/14/2025 09:30:00 AM, [address] [place] [address] [address], [place], [address], Provider Name:Trell Lorenzo , 10/17/2025 09:30:00 AM, [address] [place] [address] [address], [place], [address], Progress Notes * Ericka WOLFE LDOB:1995 (29 yo F)Acc No.[id number]:09/27/2024 Progress Notes Patient: Ericka GUPTA Provider: Luís Lorenzo MD :1995 A ge:28 Y S ex:Female Date:09/27/2024 Address:[address] [place], [place] [id number] Subjective: * Chief Complaints: * 1 . [...] headaches, Complex migraines, Childhood otitis requiring myringotomies, [id number], Asthma, Overweight. * Surgical History: B ilateral myringotomies , Skin grafted eardrum age 14 , [id number] Termination , No history . 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 She is engaged to be . She does not smoke cigarettes. She does not drink alcohol. She has no history of substance use disorder. She was born and raised in [place]. She has no cheondoism objection to blood transfusion. * Medications: T [...] 0 09/27/2024 Generated for Sharon wilkes/Ramakrishna/Mooseitting on: 02/19/2024 10:44 [...]
--- OUTSIDE RECORDS SUMMARY | 2024-10-11 12:00 | XMS_ITS ---
Author Organization Trell Lorenzo III, MD Address [address] [address] Care Team Providers Care Rod Finisher Name Role Phone Dr. Trell Lorenzo III Primary Care Provider [phone] Allergies Allergen (clinical drug ingredient) Drug/Non Drug [...] 10 MG TAKE 1 TABLET BY MO [facility] ONCE DAILY FOR ALLERGIES Oral Active Albuterol Sulfate HFA 108 (90 Base) MCG/ACT Inhalation Active Propranolol HCl 10 MG TAKE 1 TABLET BY OUT 3 TIMES DAILY NEEDED (PALPITATIONS). 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 ally twice a day 09/13/2024 Active Social History Tobacco Use: Social History Observation Description Date Details (start date - stop date) Never Smoker NA - NA Sex Assigned At : Social History Observation Description Sex Assigned At Female Tobacco Use/Smoking Question Answer Notes Patient is a nonsmoker Encounters Encounter Location Date Provider Diagnosis Trell Lorenzo III, MD [address] [place] [address] [place] [address] 10/11/2024 Trell Lorenzo Plan Of Treatment Medication Medication Name Sig Start Date Stop Date Notes hydrOXYzine HCl 25 MG 1 tablet as needed Orally as needed for anxiety 11/06/2023 SUMAtriptan Magnesium Oxide 250 MG 1 tablet as neede d Orally Once a day Cetirizine HCl 10 MG TAKE 1 TABLET BY MO [facility] ONCE DAILY FOR ALLERGIES Oral Albuterol Sulfate HFA 108 (9 0 Base) MCG/ACT Inhalation Propranolol HCl 10 MG TAKE 1 TABLET BY M OUTH 3 TIMES DAILY NEEDED (PALPITATIONS). Oral OXcarbazepine 150 MG TAKE 1 TABLET BY MO [facility] THREE TIMES A DAY Oral Ketoconazole 2 % 1 application Casting And Curing Operator ally twice a day 09/13/2024 Next Appt Details Provider Name:Trell Luis M Maura , 04/14/2025 09:30:00 AM, [address] [place] [address] [address], [place], [address], Provider Name:Trell Asencio Maura , 10/17/2025 09:30:00 AM, [address] [place] [address] [address], [place], [address], Progress Notes * Ericka WOLFE LDOB:1995 (29 yo F)Acc No.[id number]:10/11/2024 Progress Notes Patient: Bob MEDINAABRIEricka Provider: Luís Lorenzo MD :1995 A ge:28 Y S ex:Female Date:10/11/2024 Address:[address] [place], [place] [id number] Subjective: * Chief Complaints: * 1 . [...] headaches, Complex migraines, Childhood otitis requiring myringotomies, [id number], Asthma, Overweight. * Surgical History: B ilateral myringotomies , Skin grafted eardrum age 14 , [id number] Termination , No history . 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 She is engaged to be . She does not smoke cigarettes. She does not drink alcohol. She has no history of substance use disorder. She was born and raised in [place]. She has no sikh objection to blood transfusion. * Medications: T [...] 10/11/2024 Generated for Sharon wilkes/Faxing/eTransmitting on: 1 02/19/2024 10:45 AM EST History and Physical Notes * [...]
--- OUTSIDE RECORDS SUMMARY | 2024-10-15 10:00 | XMS_ITS ---
Author Organization Trell Lorenzo III, MD Address [address] [place] [address] Care Team Providers Care Criminal Profiler Name Role Phone Dr. Trell Lorenzo III Primary Care Provider Allergies Allergen (clinical drug ingredient) Drug/Non Drug Allergy documented on EMR Reaction Allergy Type Onset Date Status Adhesive Unknown Allergy Active Reason For Referral Reason Evaluate and Treat Recurrent headaches Recurrent Migraines Diagnosis 1 Tension headache (G4 4.209) Diagnosis 2 Episodic migraine (G 43.909) Diagnosis 3 Vestibular migraine (G43.809) Referral Organization Trell Lorenzo III, MD Referring Provider First Name Trell Referring Provider Last Name Maura Referring Provider Speciality Internal M edicine Referred Provider Neurology [facility] Referred Provider Specialty Neurology General Notes Mone Fuller 10/21/2024 11:06:42 AM > Referral faxed with progress note, Mone Fuller 10/23/2024 03:17:26 PM > Referral has been received but patient is not scheduled at this time Referral Priority Routine REASON FOR VISIT Annual Exam Medications Medication SIG (Take, Route, Frequency, Duration) Notes Start Date End Date Status Ketoconazole 2 % 1 application Telescope Maintenance ally twice a day 09/13/2024 Active Cetirizine HCl 10 MG TAKE 1 TABLET BY [facility] ONCE DAILY FOR ALLERGIES Oral PRN Active Albuterol Sulfate HFA 108 (90 Base) MCG/ACT Inhalation Active Ritalin 10 MG [address] omach Orally Twice a day Active hydrOXYzine HCl 25 MG 1 tablet as needed Orally as needed for anxiety 11/06/2023 Active SUMAtriptan PRN Active Magnesium Oxide 250 MG 1 tablet as neede d Orally Once a day Active Social History Tobacco Use: Social History Observation Description Date Details (start date - stop date) Never Smoker NA - NA Sex Assigned At : Social History Observation Description Sex Assigned At Female Tobacco Control (Standard) Question Answer Notes Tobacco use: Nonsmoker Additional Findings: Tobacco non-user Aggressive nonsmoker AUDIT-C (Standard) Question Answer Notes Did you have a drink contain ing alcohol in the past year? Yes How often did you have six o r more drinks on one occasion in the past year? Less than monthly (1 point) How many drinks did you have on a typical day when you were drinking in the past year? 1 or 2 drinks (0 point) How often did you have a dri nk containing alcohol in the past year? Never (0 point) Points 1 Interpretation Negative Vital Signs Temperature 99.3 degrees Fahrenheit 10/16/19 25 Blood pressure systolic 107 mm Hg 10/16/19 25 Blood pressure diastolic 65 mm Hg 025 Heart Rate 68 /min 10/15/2024 Respiratory Rate 16 /min 10/15/2024 Height 62 in 10/15/2024 Weight 144 lbs 10/15/2024 BMI 26.34 kg/m2 10/15/2024 Oximetry 98 % 10/15/2024 Encounters Encounter Location Date Provider Diagnosis Trell Lorenzo III, MD [address] [place] [address] [address] [place], [place] [address] 10/15/2024 Trell Lorenzo Vestibular migraine G43.809 ; Overweight E66.3 ; Tinnitus, bilateral H93.13 ; Tension headache G44.209 and Pityriasis versicolor B36.0 Assessments Encounter Date Diagnosis (ICD Code) Assessment Notes Treatment Notes Treatment Clinical Notes 10/15/2024 Vestibular migraine (ICD-10 - G43.809) Dr. Doss has given her sumatriptan. 10/15/2024 Overweight (ICD-10 - E66.3) She is slightly overweight with a body mass index of 26. We discussed her diet and nutrition. We made a plan to lose weight at a rate of one half of a pound per week until the body mass index is in the normal range. 10/15/2024 Tinnitus, bilateral (ICD-10 - H93.13) She has this episodically in neurology is aware.She has an appointment with ENT in September 2023 to address the issue of the previous myringotomies and her current tinnitus. Her hearing will be evaluated at that time. 10/15/2024 Tension headache (ICD-10 - G44.209) She will continue on her use of acetaminophen and ibuprofen. 10/15/2024 Pityriasis versicolor (ICD-10 - B36.0) The rash has resolved Plan Of Treatment Medication Medication Name Sig Start Date Stop Date Notes Ketoconazole 2 % 1 application Telescope Maintenance ally twice a day 09/13/2024 Cetirizine HCl 10 MG TAKE 1 TABLET BY [facility] ONCE DAILY FOR ALLERGIES Oral PRN Albuterol Sulfate HFA 108 (9 0 Base) MCG/ACT Inhalation Ritalin 10 MG [address] omach Orally Twice a day hydrOXYzine HCl 25 MG 1 tablet as needed Orally as needed for anxiety 11/06/2023 SUMAtriptan PRN Magnesium Oxide 250 MG 1 tablet as neede d Orally Once a day Referrals Referral Date Details 10/15/2024 10/15/2024, Evaluate and Treat Recurrent headaches Recurrent Migraines, [facility] Next Appt Details Follow Up: 6 Months, Reason: OV Provider Name:Trell Lorenzo , 04/14/2025 09:30:00 AM, [address] [place] [address] [address], [place], [address], Provider Name:Trell Lorenzo , 10/17/2025 09:30:00 AM, [address] [place] [address] [address], [place], [address], Progress Notes * Ericka WOLFE LDOB:1995 (28 yo F)Acc No.[id number]:10/15/2024 Progress Notes Patient: Ericka GUPTA Provider: Luís Lorenzo MD :1995 A ge:28 Y S ex:Female Date:10/15/2024 Address:[address] [place], [place] [id number] Subjective: * Chief Complaints: * A nnual Exam * HPI: D epression Screening: S he returns for her annual visit at the age of 28. The pityriasis has resolved. She feels healthy and well. She says her psychiatrist thinks she might be bipolar and is trying different medications with her to optimize her mental status. He is giving her Ritalin. She has had no episodes of asthma recently. She still has the intermittent tinnitus. Her headaches are unchanged occasionally severe but not frequent. She feels constipated at times. When she moves her bowels during constipation she feels shaky and lightheaded. We discussed the use of stool softeners and bulking agents and a high-fiber diet at length tooday.She occasionally has a dull pain below her ear in the left side of her neck but the examination was unremarkable and the discomfort could not be reproduced. She will be observed. PHQ-9 L ittle interest or pleasure in doing things?Not at all F eeling down, depressed, or hopeless N ot at all T rouble falling or staying asleep, or sleeping too much S everal days F eeling tired or having little energy S everal days P oor appetite or overeating S ever F eeling bad about yourself or that you are a failure, or have let yourself or your family down S everal days T rouble concentrating on things, such as reading the newspaper or watching television S ever M oving or speaking so slowly that other people could have noticed; or the opposite, being so fidgety or restless that you have been moving around a lot more than usual N ot at all T houghts that you would be better off or of hurting yourself in some way N ot at all T otal Score 5 I nterpretation M ild Depression C OVID-19 Screening: Questions H ave you had any new onset fever, chills, cough, congestion, sore throat, shortness of breath, muscle aches? N o S FELIBERTO Questions: SDOH Questions I n the past year have you been worried about losing your housing? N o I n the past year have you or any family members you live with been unable to get any of the following when it was really needed? Check all that apply: N one * ROS: G eneral/Constitutional: pain U pper left neck, otherwise only normal aches and pains. C hills d enies. F atigue a dmits. F ever d enies. E NT: Decreased hearing d enies. R espiratory: Cough d enies. C ardiovascular: Chest pain with exertion d enies. D yspnea on exertion?denies. S hortness of breath d enies. G astrointestinal: Constipation t hat is moderate. D ecreased appetite?denies. D iarrhea d enies. H eartburn d enies. N ausea d enies. R ectal bleeding d enies. V omiting d enies. H ematology: bruising d enies. p etechiae d enies. S wollen glands n one have been noted. G enitourinary: Frequent urination d enies. M usculoskeletal: Muscle aches d enies. P ainful joints d enies. S ciatica d enies. W eakness d enies. S kin: Itching d enies. R ria R esolved. S kin lesion(s) d enies. N eurologic: Difficulty speaking d enies. D izziness d enies.?Headache d enies. L ow back pain d enies. P sychiatric: Depressed mood d enies. * Medical History: * Surgical History: B ilateral myringotomies Skin grafted eardrum age 14 [id number] Termination No history * Hospitalization/Major Diagno stic Procedure: N o history * Family History: F ather: alive 47 yrs, anxiety, diagnosed with HTN, CVD. M other: 23 yrs, bipolar, substance use. S iblings: alive. M aternal Grand Mother: diagnosed with HTN. 2 brother(s) , 2 sister(s) - healthy. . There is a history of Alzheimer's dementia in her grandparents. Her mother at the age of 23 in an automobile accident. She was an adopted. Grandfather and Great uncle from Dad side of the family had Schitzophrenia and the rest of the males have Heart problems. Substance use from Dad side of the family. * Social History: T obacco Use: T obacco Control (Standard) T obacco use: N onsmoker A dditional Findings: Tobacco non-user A ggressive nonsmoker D rugs/Alcohol: D rugs H ave you used drugs other than those for medical reasons in the past 12 months? N o D rug/Alcohol: A SUSAN-C (Standard) D id you have a drink containing alcohol in the past year? Y es H ow often did you have six or more drinks on one occasion in the past year? L ess than monthly (1 point) H ow many drinks did you have on a typical day when you were drinking in the past year? 1 or 2 drinks (0 point) H ow often did you have a drink containing alcohol in the past year? 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 She is engaged to be . She does not smoke cigarettes. She does not drink alcohol. She has no history of substance use disorder. She was born and raised in [place]. She has no christianity objection to blood transfusion. * Medications: T akingRitalin 10 MG Tablet 1 tablet on empty stomach Orally Twice a day hydrOXYzine HCl 25 MG Tablet 1 tablet as needed Orally as needed for anxiety SUMAtriptan , Notes to Pharmacist: PRNMagnesium Oxide 250 MG Tablet 1 tablet as needed Orally Once a day Cetirizine HCl 10 MG Tablet TAKE 1 TABLET BY MOUTH ONCE DAILY FOR ALLERGIES Oral , Notes to Pharmacist: PRNAlbuterol Sulfate HFA 108 (90 Base) MCG/ACT Aerosol Solution Inhalation Ketoconazole 2 % Cream 1 application Externally twice a day Taking Ritalin 10 MG Tablet 1 tablet on empty stomach Orally Twice a day Taking hydrOXYzine HCl 25 MG Tablet 1 tablet as needed Orally as needed for anxiety Taking SUMAtriptan , Notes to Pharmacist: PRNTaking Magnesium Oxide 250 MG Tablet 1 tablet as needed Orally Once a day Taking Cetirizine HCl 10 MG Tablet TAKE 1 TABLET BY MOUTH ONCE DAILY FOR ALLERGIES Oral , Notes to Pharmacist: PRNTaking Albuterol Sulfate HFA 108 (90 Base) MCG/ACT Aerosol Solution Inhalation Taking Ketoconazole 2 % Cream 1 application Externally twice a day DiscontinuedPropranolol HCl 10 MG Tablet TAKE 1 TABLET BY MOUTH 3 TIMES DAILY NEEDED (PALPITATIONS). Oral OXcarbazepine 150 MG Tablet TAKE 1 TABLET BY MOUTH THREE TIMES A DAY Oral Medication List reviewed and reconciled with the patientDiscontinued Propranolol HCl 10 MG Tablet TAKE 1 TABLET BY MOUTH 3 TIMES DAILY NEEDED (PALPITATIONS). Oral Discontinued OXcarbazepine 150 MG Tablet TAKE 1 TABLET BY MOUTH THREE TIMES A DAY Oral Medication List reviewed and reconciled with the patient * Allergies: A cesarsiveno[Allergies Verified] Objective: * Vitals: H t: 62, Wt: 144, BMI:26.34, BP: 107/65, HR: 68, RR: 16, Temp: 99.3, Oxygen sat %: 98, Ht-cm: 157.48, Wt-k.32. * Examination: G eneral Examination: GENERAL APPEARANCE: p leasant, well nourished, well developed, in no acute distress, calm and relaxed: overweight: woman. HEAD: a traumatic, normocephalic. EYES: e matthew, perrla, anicteric, conjugate. EARS: n ormal. NOSE: s eptum intact. ORAL CAVITY: n ormal, unremarkable. NECK/THYROID: n o jugular venous distention, no carotid bruit, thyroid normal, Upper left neck within normal limits, palpation does not reproduce pain nor does moving the jaw or rotating the neck or swallowing. LYMPH NODES: n o enlarged lymph nodes,spleen normal. SKIN: n o suspicious lesions, anicteric. HEART: n o clicks, gallops, murmurs, or rubs, regular rhythm, S1, S2 normal, no s3, or vascular bruits. LUNGS: c lear to auscultation . BREASTS: N ot examined, This is done by ENVIRONMENTAL JOURNALIST. ABDOMEN: b owel sounds normal, no ascites, no organomegaly, no mass: overweight. RECTAL EXAM: n ot examined, This is done by ENVIRONMENTAL JOURNALIST. MUSCULOSKELETAL: e xtremities unremarkable, no clubbing, cyanosis or edema. PERIPHERAL PULSES: n ormal. NEUROLOGIC: a lert and oriented, cranial nerves 2-12 grossly intact, deep tendon reflexes 2+ symmetrical, motor strength normal upper and lower extremities, sensory exam intact. PSYCH: a lert, oriented: cognitive function intact: cooperative with exam: good eye contact: judgement and insight good: mood/affect full range: speech clear: thought process logical, goal directed. Assessment: * Assessment: 1. V estibular migraine - G43.809 (Primary) N otes :Dr. Doss has given her sumatriptan. 2 . O verweight - E66.3 N otes :She is slightly overweight with a body mass index of 26. We discussed her diet and nutrition. We made a plan to lose weight at a rate of one half of a pound per week until the body mass index is in the normal range. 3 . T innitus, bilateral - H93.13 N otes :She has this episodically in neurology is aware.She has an appointment with ENT in September 2023 to address the issue of the previous myringotomies and her current tinnitus. Her hearing will be evaluated at that time. 4 . T ension headache - G44.209 N otes :She will continue on her use of acetaminophen and ibuprofen. 5 . P ityriasis versicolor - B36.0 N otes :The rash has resolved Plan: * Treatment: 2. T ension headache Referral To:[facility] Neurology Reason:Evaluate and Treat Recurrent headaches Recurrent Migraines 3. O thers Continue Ritalin Tablet, 10 MG, 1 tablet on empty stomach, Orally, Twice a day; C ontinue hydrOXYzine HCl Tablet, 25 MG, 1 tablet as needed, Orally, as needed for anxiety; C ontinue SUMAtriptan, Notes to Pharmacist: PRN; C ontinue Magnesium Oxide Tablet, 250 MG, 1 tablet as needed, Orally, Once a day; C ontinue Cetirizine HCl Tablet, 10 MG, TAKE 1 TABLET BY MOUTH ONCE DAILY FOR ALLERGIES, Oral, Notes to Pharmacist: PRN; C ontinue Albuterol Sulfate HFA Aerosol Solution, 108 (90 Base) MCG/ACT, Inhalation; C ontinue Ketoconazole Cream, 2 %, 1 application, Externally, twice a day. Referral To:[facility] Neurology Reason:Evaluate and Treat Recurrent headaches Recurrent Migraines * Procedure Codes: 9 4760 MEASURE BLOOD OXYGEN LEVEL * Preventive Medicine: Counseling: C are goal [...] Other reason not done * Follow Up: 6 Months (Reason: OV) * Images: * Sign off status: Completed true * Provider: Luís Lorenzo MD Date: 0 10/15/2024 Generated for Angelinai katrin/Ramakrishna/eTransmitting on: 1 02/19/2024 10:44 AM EST History and Physical Notes * HPI (History of Present Illness) Category Sub-Category Detail Notes Depression Screening PHQ-9 Little inte rest or pleasure in doing things: Not at all Feeling down, depressed, or hopeless: No t at all Trouble falling or staying asleep, or sl eeping too much: Several days Feeling tired or having little energy: S everal days Poor appetite or overeating: Several day s Feeling bad about yourself o r that you are a failure, or have let yourself or your family down: Several days Trouble concentrating on thi ngs, such as reading the newspaper or watching television: Several days Moving or speaking so slowly that other people could have noticed; or the opposite, being so fidgety or restless that you have been moving around a lot more than usual: Not at all Thoughts that you would be b merry off or of hurting yourself in some way: Not at all Total Score: 5 Interpretation: Mild Depression COVID-19 Screening Questions Have you had any new onset fever, chills, cough, congestion, sore throat, shortness of breath, muscle aches?: No SDOH Questions SDOH Questions In the past year have you been worried about losing your housing?: No In the past year have you or any family members you live with been unable to get any of the following when it was really needed? Check all that apply:: None Examination Category Sub-Category Detail Notes General Examination GENERAL APPEARANCE: pleasant , well nourished, well developed, in no acute distress, calm and relaxed: overweight: woman HEAD: atraumatic, normocep halic EYES: eomi, perrla, anicte gautam, conjugate EARS: normal NOSE: septum intact NECK/THYROID: no jugular venous di stention, no carotid bruit, thyroid normal, Upper left neck within normal limits, palpation does not reproduce pain nor does moving the jaw or rotating the neck or swallowing HEART: no clicks, gallops, murmurs, or rubs, [...] lesion s, anicteric PERIPHERAL PULSES: normal BREASTS: Not examined, This i s done by ENVIRONMENTAL JOURNALIST MUSCULOSKELETAL: extremities unremark able, no clubbing, cyanosis or edema LYMPH NODES: no enlarged lymph no german,spleen normal RECTAL EXAM: not examined, This i s done by ENVIRONMENTAL JOURNALIST PSYCH: alert, oriented: cog nitive function intact: cooperative with exam: good eye contact: judgement and insight good: mood/affect full range: speech clear: thought process logical, goal directed ORAL CAVITY: normal, unremarkable Consultation Request Notes Referral Date Referring Provider Referred Provider Not anuja 10/15/2024 Trell Lorenzo Neurology [facility] Evaluate and Treat Recurrent headaches Recurrent Migraines
--- OUTSIDE RECORDS SUMMARY | 2024-11-12 12:00 | XMS_ITS ---
Author Organization Trell Lorenzo III, MD Address [address] [address] Care Team Providers Care Marine Geologist Name Role Phone Dr. Trell Lorenzo III Primary Care Provider [phone] Allergies Allergen (clinical drug ingredient) Drug/Non Drug Allergy documented on EMR Reaction Allergy Type Onset Date Status Adhesive Unknown Allergy Active REASON FOR VISIT New Concern Medications Medication SIG (Take, Route, Frequency, Duration) Notes Start Date End Date Status SUMAtriptan PRN Active Ketoconazole 2 % 1 application Surface Water Manager ally twice a day 09/13/2024 Active Magnesium Oxide 250 MG 1 tablet as neede d Orally Once a day Active Albuterol Sulfate HFA 108 (90 Base) MCG/ACT Inhalation Active Cetirizine HCl 10 MG TAKE 1 TABLET BY [facility] ONCE DAILY FOR ALLERGIES Oral PRN Active Ritalin 10 MG 1 tablet on [...] Nonsmoker Additional Findings: Tobacco non-user Aggressive nonsmoker Encounters Encounter Location Date Provider Diagnosis Trell Lorenzo III, MD [address] [place] [address] [place] [address] 11/12/2024 Trell Lorenzo Plan Of Treatment Medication Medication Name Sig Start Date Stop Date Notes SUMAtriptan PRN Ketoconazole 2 % 1 application Surface Water Manager ally twice a day 09/13/2024 Magnesium Oxide 250 MG 1 tablet as neede d Orally Once a day Albuterol Sulfate HFA 108 (9 0 Base) MCG/ACT Inhalation Cetirizine HCl 10 MG TAKE 1 TABLET BY [facility] ONCE DAILY FOR ALLERGIES Oral PRN Ritalin 10 MG [address] omach Orally Twice a day hydrOXYzine HCl 25 MG 1 tablet as needed Orally as needed for anxiety 11/06/2023 Next Appt Details Provider Name:Trell Asencio Maura , 04/14/2025 09:30:00 AM, [address] [place] [address] [address], [place], [address], Provider Name:Trell Asencio Maura , 10/17/2025 09:30:00 AM, [address] [place] [address] [address], [place], [address], Progress Notes * Ericka WOLFE LDOB:1995 (29 yo F)Acc No.[id number]:11/12/2024 Progress Notes Patient: Ericka GUPTA Provider: Luís Lorenzo MD :1995 A ge:28 Y S ex:Female Date:11/12/2024 Address:[address] [place], [place] [id number] Subjective: * Chief Complaints: * 1 . New Concern. * HPI: C OVID-19 Screening: Questions H [...] headaches, Complex migraines, Childhood otitis requiring myringotomies, [id number], Asthma, Overweight. * Surgical History: B ilateral myringotomies , Skin grafted eardrum age 14 , [id number] Termination , No history . 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 She is engaged to be . She does not smoke cigarettes. She does not drink alcohol. She has no history of substance use disorder. She was born and raised in [place]. She has no restoration objection to blood transfusion. * Medications: T aking Ritalin 10 MG Tablet 1 tablet on empty stomach Orally Twice a day , Taking hydrOXYzine HCl 25 MG Tablet 1 tablet as needed Orally as needed for anxiety , Taking SUMAtriptan , Notes to Pharmacist: PRN, Taking Magnesium Oxide 250 MG Tablet 1 tablet as needed Orally Once a day , Taking Cetirizine HCl 10 MG Tablet TAKE 1 TABLET BY MOUTH ONCE DAILY FOR ALLERGIES Oral , Notes to Pharmacist: PRN, Taking Albuterol Sulfate HFA 108 (90 Base) MCG/ACT Aerosol Solution Inhalation , Taking Ketoconazole 2 % Cream 1 [...] Pending * Provider: Luís Lorenzo MD Date: Generated for Sharon wilkes/Ramakrishna/eTransmitting on: 02/19/2024 10:44 AM EST History and [...]
--- NOTE | 2024-12-19 09:24 | MHC.OFFVIS ---
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 Intake Note: Per patient, monthly left sided pelvic pain Public Speaking Instructor: Public Speaking Instructor Present (Shakira) Accompanied by: Self / Same As Patient Allergies cat dander (cats) Allergy (Unknown, Verified 12/19/24 09:26) Unknown Medication List - Last Reconciled 12/19/24 by Cara Dalton CNM hydroxyzine HCl 25 mg PO BEDTIME magnesium 250 mg orally every other day; sumatriptan succinate take 1 tab at onset of headache; if no relief may repeat 1 tab after at least 2 hrs; max = 4 tabs/24 hr PO Is last menstrual period known: Yes Last menstrual period: 12/19/24 Post menopausal: No Patient : No HPI HPI 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 She just had a visit with neurology and discussed her history of her migraines in quite detail. She sees her primary care provider and she has had blood work which she said was all within normal limits with the exception of elevated cholesterol. She went off control pills about a year ago she is thinks her migraines have gotten better since she went off the control pills she had been on control since she was 16 she had been on Depo and did gain weight with that and she was on pills for very many years. Her periods were all it was regular with the pills and came at the placebo week. Since she has gone off the pills she has noticed that her periods are irregular and she might even miss a month and there is no predictability to it. She does tests frequently so she will not be surprised. She and her have talked about it though and if they get they get they are not trying and they are not trying to prevent it there in that place of their lives that feels kind of good. 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 She also has noticed that her periods when they come can be very severe and crampy where as they were not when she was on the control pills. She does think her moods are better generally so she is not interested in going back on the pills for many reasons. Additionally she sometimes has a pain more often on the left side than any where else and it seems random she has not been able to keep track of when it happens but it has happened at least 3 times in the last month. And sometimes when she has sex it hurts where as it did not before. [facility] Medical History Headache Asthma Vertigo Asthma Anxiety Tinnitus of both ears Recurrent headache Family History Paternal Grandfather Schizophrenia Mother Bipolar 1 disorder Social History Patient : No Female Reproductive History Menstrual Age of Menarche: 11 Duration of menses: 3-5 days Date of last menstrual period: 12/19/24 Total pregnancies: 1 Ab induced: 1 Date of last pap smear: 12/18/23 (negative pap smear, negative hpv ) History of abnormal pap smear: No Physical Exam Vital Signs: Last Vital Signs BP 118/74 12/19/24 09:32 BMI result Body Mass Index 26.3 Const General: healthy appearing, comfortable, no acute distress, well developed and alert Nutritional Appearance: average body habitus Orientation/consciousness: patient oriented x3 Limitations: no limitations HEENT Head: Yes normocephalic Neck Neck: Yes normal visual inspection Thyroid: Thyroid normal Chest Chest palpation & inspection: normal inspection of the chest Breast/axilla inspection: normal inspection of the breasts and normal inspection of the axillae Breast/axilla palpation: normal palpation of the breasts and normal palpation of the axillae Resp Effort & Inspection: normal respiratory effort GI Inspection: Yes normal to inspection, No Abdominal wall edema and No distended Palpation (GI): Soft to palpation and nontender Other: Pelvic exam and STI testing was offered and planned however the visit was cut short by a fire drill in the building and we all needed to leave. Full discussion of planning going forward had already taken place and so I will be ordering a pelvic ultrasound and she is going to be keeping track of her. Her symptoms in every way including dyspareunia and when she gets a random pain and we will correlate it when we review her ultrasound at her next visit and also do her STI testing at that visit she is in agreement with this plan. We will see her in a couple of months to allow time for tracking and the ultrasound. External Female Exam: normal external appearance Neuro General: patient oriented x3 Assessment & Plan Assessment & Plan (1) Well woman exam with routine gynecological exam: Code(s): Z01.419 - Encounter for gynecological examination (general) (routine) without abnormal findings Category: Medical (2) Cervical cancer screening: Comment: 12/18/2023 Pap is negative with negative HPV. Code(s): Z12.4 - Encounter for screening for malignant neoplasm of cervix Category: Medical (3) control counseling: Code(s): Z30.09 - Encounter for other general counseling and advice on contraception Category: Medical (4) Pelvic pain: Code(s): R10.2 - Pelvic and perineal pain Category: Medical (5) History of irregular menstrual cycles: Code(s): Z87.42 - Personal history of other diseases of the female genital tract Category: Medical Plan Pelvic exam and STI testing was offered and planned however the visit was cut short by a fire drill in the building and we all needed to leave. Full discussion of planning going forward had already taken place and so I will be ordering a pelvic ultrasound and she is going to be keeping track of her. Her symptoms in every way including dyspareunia and when she gets a random pain and we will correlate it when we review her ultrasound at her next visit and also do her STI testing at that visit she is in agreement with this plan. We will see her in a couple of months to allow time for tracking and the ultrasound. Discussed in general the it is highly likely that some of the pain she is experiencing is in relation some how to either ovulation or development of follicles in a cycle where she does not ovulate and only in correlating at all with her calendar can we put the picture completely together I am going to order the pelvic ultrasound and we will have a follow-up visit in a couple of months and review everything all together. Also discussed the possibility of progestin only OCPs that would not necessarily regulate her periods but might make them application support and shorter and hopefully would not exacerbate her migraines however she is not at all interested at this time also discussed the role of weight in irregular cycles she has not really overweight with a BMI of 26.3. But however even subtle weight gain above baseline can contribute to irregular menses and while it may not be an issue now it might be challenging in planning a the when if and when she gets to that point. Patient had thought that she had had her thyroid checked within the last year but I did not find that results in the system so I am ordering a TSH and as well I am ordering testosterone level and prolactin level I called her to let her know she can get them done the day she goes for the ultrasound and we will review all at her next visit. Orders: Orders Thyroid Stimulating Hormone Today R10.2 - Pelvic and perineal pain, Z01.419 - Encounter for gynecological examination (general) (routine) without abnormal findings, Z87.42 - Personal history of other diseases of the female genital tract Testosterone, Free/Total Today N92.6 - Irregular menstruation, unspecified, R10.2 - Pelvic and perineal pain, Z01.419 - Encounter for gynecological examination (general) (routine) without abnormal findings, Z87.42 - Personal history of other diseases of the female genital tract US pelvic and transvaginal Today R10.2 - Pelvic and perineal pain, Z01.419 - Encounter for gynecological examination (general) (routine) without abnormal findings, Z12.4 - Encounter for screening for malignant neoplasm of cervix, Z30.09 - Encounter for other general counseling and advice on contraception, Z87.42 - Personal history of other diseases of the female genital tract Prolactin Today R10.2 - Pelvic and perineal pain, Z01.419 - Encounter for gynecological examination (general) (routine) without abnormal findings, Z87.42 - Personal history of other diseases of the female genital tract Coding Level of Care Code Est Pt Prev Care 18-39y([id number]) Diagnoses Well woman exam with routine gynecological exam Z01.419 Cervical cancer screening Z12.4 control counseling Z30.09 Pelvic pain R10.2 History of irregular menstrual cycles Z87.42
[2024-12-19 09:32] VITALS: BP 118/74; BMI 26.3
--- OUTSIDE RECORDS SUMMARY | 2024-12-19 10:45 | XMS_ITS | Patient Health Record ---
Author Organization Trell Lorenzo III, MD Address [address] [place] [address] Care Team Providers Care Director Process Improvement Name Role Phone Dr. Trell Lorenzo III Primary Care Provider Allergies Allergen (clinical drug ingredient) Drug/Non Drug Allergy documented on EMR Reaction Allergy Type Onset Date Status Adhesive Unknown Allergy Active Results Component Value Reference Range Notes Complete Blood Count Auto Di ff Reviewed date:02/10/2024 05:23:34 PM Interpretation: Performing Lab:[facility], [address] [place] [id number] Notes/Report: White Blood Count 6.9 4.8-10.8 X10*3/uL [...] Speciality Internal M edicine Referred Provider Neurology [facility] Referred Provider Specialty Neurology General Notes [...] 11/06/2023 Active Ketoconazole 2 % 1 application Hat Cleaner ally twice a day 09/13/2024 Active Magnesium Oxide 250 MG 1 tablet as neede d Orally Once a day Active Albuterol Sulfate HFA 108 (90 Base) MCG/ACT Inhalation Active Cetirizine HCl 10 MG TAKE 1 TABLET BY [facility] ONCE DAILY FOR ALLERGIES Oral PRN Active [...] Problem Status W/U Status Risk Notes Problem 118505669 Overweight (E66.3) Active confirmed She is slightly overweight with a body mass index of 26. We discussed her diet and nutrition. We made a plan to lose weight at a rate of one half of a pound per week until the body mass index is in the normal range. Problem 74511629 Anxiety (F41.9) Active confirmed She has numerous symptoms which are exacerbated by anxiety. We have discussed ways of reducing anxiety through lifestyle modification, cognitive therapy and medication with an SSRI. Problem 52379620 Pityriasis versicolor (B36.0) Active confirmed The rash has resolved Problem 9049339237298 Tinnitus, bilateral (H93.13) Active confirmed She has this episodically in neurology is aware.She has an appointment with ENT in September 2023 to address the issue of the previous myringotomies and her current tinnitus. Her hearing will be evaluated at that time. Problem 65977111 Fungal dermatitis (B36.9) Active confirmed She will be treated with terbinafine for several weeks with a followup visit. Problem 943989968 Mild intermittent asthma without complication (J45.20) Active confirmed She has had episodes of asthma since childhood. I have refilled a prescription for an albuterol inhaler. She will come to the office if this becomes severe. Problem 599232854 Vertigo (R42) Active confirmed She has an appointment with ENT in September 2023. The vertigo is not present now. Problem 375186702 PVC (premature ventricular contraction) (I49.3) Active confirmed Problem 573641608 History of otitis media (Z86.69) Active confirmed She has a history of myringotomies as a child. She has an appointment with ENT in September of this year. There is no current ear infection. Problem [id number] Episodic migraine (G43.909) Active confirmed She will continue to see neurology and use the sumatriptan. Problem 555860550 Tension headache (G44.209) Active confirmed She will continue on her use of acetaminophen and ibuprofen. Problem 116366763 Vestibular migraine (G43.809) Active confirmed Dr. Doss [...] Date Provider Diagnosis Trell Lorenzo III, MD [address] [place] [address] [place] [address] 10/15/2024 Trell Lorenzo Vestibular migraine G43.809 ; Overweight E66.3 ; Tinnitus, bilateral H93.13 ; Tension headache G44.209 and Pityriasis versicolor B36.0 Trell Lorenzo III, MD [address] [place] [address] [place] [address] 03/01/2024 Trell Lorenzo Premature ventricula r contractions I49.3 ; Vestibular migraine G43.809 ; Anxiety F41.9 ; Tinnitus, bilateral H93.13 ; Mild intermittent asthma without complication J45.20 ; Vertigo R42 ; Tension headache G44.209 and Overweight E66.3 Trell Lorenzo III, MD [address] [place] [address] [place] [address] 09/13/2024 Trell Lorenzo Pityriasis versicolo r B36.0 ; Tinnitus, bilateral H93.13 ; Mild intermittent asthma without complication J45.20 ; Tension headache G44.209 and Vertigo R42 Trell Lorenzo III, MD [address] [place] [address] [place] [address] 09/18/2024 Trell Lorenzo Pityriasis versicolo r B36.0 ; Mild intermittent asthma without complication J45.20 ; Vertigo R42 ; Overweight E66.3 and Vestibular migraine G43.809 Trell Lorenzo III, MD [address] [place] [address] [place] [address] 08/28/2024 Trell Lorenzo Fungal dermatitis B36.9 ; Tinnitus, bilateral H93.13 ; Mild intermittent asthma without complication J45.20 ; Vertigo R42 and Tension headache G44.209 Trell Lorenzo III, MD [address] [place] [address] [address] [place], [place] [address] 09/10/2024 Trell Lorenzo III, MD [address] [place] [address] [address] [place] [address] 09/10/2024 Trell Lorenzo Assessments Encounter Date Diagnosis [...] 03/01/2024 Premature ventricular contractions (ICD-10 - I49.3) [employer] Operator says given her a beta pieter prescription [...] Provider Name:Trell Phanrne , 04/14/2025 09:30:00 AM, [address] [place] [address] [address], [place], [address], Provider Name:Trell Lorenzo , 10/17/2025 09:30:00 AM, [address] [place] [address] [address], [facility] [place], [address], Insurance Providers Payer Name Payer Address Payer Phone Subscriber Number Group Number Insured Name Patient Relationship to Insured Coverage Start Date Coverage End Date [employer] [address] TIARA CERVANTES [id number] Terrence Wolfe Spouse - patient is the spouse of the insured Medical (General) History Medical History History ICD Code Tinnitus of both ears H93.13 Anxiety F41.9 Asthma J45.909 Vertigo Tension headaches Complex migraines Childhood otitis requiring myringotomies [id number] Asthma Overweight Surgical History Surgery Date(Month/Year) No history [id number] Termination Skin grafted eardrum age 14 Bilateral myringotomies Hospitalization History Reason Date(Month/Year) No history
== END 2024-12-19 10:42 | disposition home or self-care (01) ==
LOC: HO.HWSM 09:24
PROVIDERS: PCP Internal Medicine Medical Oncology; Visit Provider Advanced Practice Midwife
DX: Z01.419 Encounter for gynecological examination (general) (routine) without abnormal findings (principal); Z12.4 Encounter for screening for malignant neoplasm of cervix; Z30.09 Encounter for other general counseling and advice on contraception; R10.20 Pelvic and perineal pain unspecified side; Z87.42 Personal history of other diseases of the female genital tract
CPT/HCPCS: 99395; 99459